=== PATIENT | male | born 1990 | race Caucasian/White ===

== ENCOUNTER 2020-05-05 08:52 | Outpatient (REF) | payer OTHER, SELFPAY ==
[2020-05-05 11:28] LABS: MANUAL DIFF FLAG NO
[2020-05-05 11:49] LABS: Basophils Absolute Auto 0.1 X10*3/uL (0.0-0.2); Basophils Percent Auto 0.7 % (0-2); Eosinophils Absolute Auto 0.1 X10*3/uL (0.0-0.4); Eosinophils Percent Auto 1.1 % (0-4); Hematocrit 45.9 % (42-52); Hemoglobin 15.5 g/dl (14.0-18.0); Imm Gran Abs Auto 0.04 X10*3/uL (0.00-0.03); Imm Gran Pct Auto 0.5 % (0.0-0.4); Lymphocytes Absolute Auto 2.1 X10*3/uL (1.2-4.9); Lymphocytes Percent Auto 23.3 % (20-40); Mean Corpuscular HGB Conc 33.8 g/dl (31.0-36.0); Mean Corpuscular Hemoglobin 30.7 pg (27.0-33.0); Mean Corpuscular Volume 90.9 fL (80-98); Mean Platelet Volume 10.3 fL (9.4-12.4); Monocytes Absolute Auto 0.6 X10*3/uL (0.1-1.2); Neutrophils Percent Auto 67.4 % (45-73); Platelet Count 262 X10*3/uL (160-400); Red Blood Count 5.05 X10*6/uL (4.60-5.80); Red Cell Distribution Width 11.7 % (11.0-16.0); White Blood Count 8.8 X10*3/uL (4.8-10.8)
[2020-05-05 11:50] LABS: Anion Gap 11 (12-20); Blood Urea Nitrogen 13 mg/dL (9-16); Calcium 9.3 mg/dL (8.4-10.2); Carbon Dioxide 30 mmol/L (22-29); Chloride 101 mmol/L (96-108); Estimated Glomerular Filt Rate > 60; Glucose Fasting 94 mg/dL (60-99); Potassium 4.5 mmol/l (3.3-5.1); Sodium 137 mmol/L (135-145)
[2020-05-05 12:08] LABS: TSH reflex Free T4 1.15 mIU/mL (0.32-4.0)
[2020-05-08 21:13] LABS: Vitamin B12 347 pg/mL (200-900)
== END 2020-05-05 08:53 | disposition home or self-care (01) ==
LOC: HO.HMGCX 08:52
PROVIDERS: PCP Internal Medicine; Visit Provider Nurse Practitioner Family
DX: R20.0 Anesthesia of skin (principal); R20.2 Paresthesia of skin
CPT/HCPCS: 36415; 80048; 82607; 84443; 85025

== ENCOUNTER 2020-05-19 08:22 | Outpatient (REF) | payer OTHER, SELFPAY ==
--- NOTE | 2020-05-19 08:34 | US_ITS ---
EXAMINATION: US ABDOMEN LIMITED CLINICAL INFORMATION: Umbilical hernia without obstruction or gangrene. COMPARISON: Portions of Ultrasound abdomen complete 08/10/2018. Portions of CT abdomen and pelvis 09/06/2017. TECHNIQUE: Real-time imaging of the abdomen targeting the area of clinical concern near the umbilicus. FINDINGS: There is no alteration in the echotexture at the base of the umbilicus. There appears to be a catheter in the abdominal wall fascia with some altered echotexture extending to the subcutaneous area. There is no definite peristalsis. No fluid or evidence of ectopic gas US/US abdomen limited IMPRESSION: There is a suggestion of a small amount of fat protruding into the umbilicus. No convincing evidence of bowel obstruction.
== END 2020-05-19 08:23 | disposition home or self-care (01) ==
LOC: HO.US 08:22
PROVIDERS: Visit Provider Internal Medicine
DX: K42.9 Umbilical hernia without obstruction or gangrene (principal)
CPT/HCPCS: 76705

== ENCOUNTER 2020-05-31 11:57 | Emergency (ER) | payer OTHER, SELFPAY ==
[2020-05-31 12:00] VITALS: BP 130/61; PULSE 87; RESP 18; TEMP 35.9; O2SAT 97; BMI 44.2
--- NOTE | 2020-05-31 14:33 | XR_ITS ---
EXAMINATION: XR KNEE, RIGHT CLINICAL INFORMATION: Right knee pain after a fall. History of paresthesias. COMPARISON: Right lower leg 09/06/2017 TECHNIQUE: 5 views of the right knee. FINDINGS: Bones and soft tissues are normal. No fracture or joint effusion. Alignment is anatomic. Joint spaces are well maintained. No abnormal soft tissue calcification. XR/XR knee RT 4V IMPRESSION: Normal right knee.
--- NOTE | 2020-05-31 14:44 | ED.LOWEXIN ---
HPI - Extremity Injury (Lower) General Chief Complaint: Extremity Injury, Lower Stated Complaint: rt knee and leg inj Time Seen by Provider: 05/31/20 14:20 Source: patient Mode of arrival: ambulatory Limitations: no limitations History of Present Illness HPI Narrative: 30yoM c PMHx of bilateral leg paresthesias of unknown cause presenting to the ED with complaints of having a episode of paresthesia while he was walking which made him fall landing on his right knee and having pain to right knee. Reports he has a neurology follow-up and EEG on June 12 in June 15. Denies any head injury or loss of consciousness or any other symptoms. Reports this paresthesia is a chronic paresthesias that he has been having and being worked up for. Related Data Previous Rx's Medication Instructions Recorded gabapentin 100 mg capsule 100 mg PO TID #30 cap 05/05/20 naproxen 500 mg PO BID PRN #10 tab 05/31/20 oxycodone-acetaminophen [Percocet] 1 tab PO Q6H PRN #10 tab 05/31/20 Allergies Allergy/AdvReac Type Severity Reaction Status Date / Time penicillin V Allergy Unknown rash Verified 05/10/20 14:24 Penicillins [PENICILLINS] Allergy Unknown UNKNOWN Verified 05/10/20 14:24 Review of Systems Review of Systems: Constitutional : No Fever, No Chills, Cardiovascular : No Chest Pain, No SOB Respiratory : No Dyspnea Gastrointestinal : No abdominal pain Musculoskeletal : + Joint pain, No Joint Swelling Skin : No skin laceration, No Foreign bodies, No rash, No surrounding erythema Neuro : No Weakness, No Numbness/tingling, No head injury of LOc. Psych : No SI/HI/thoughts of self injury Yes all other systems are reviewed and are negative [facility] Past Medical History Medical History (Updated 05/31/20 @ 15:33 by PANCHITO Johnson) Umbilical hernia Surgical History (Updated 05/31/20 @ 15:10 by PANCHITO Johnson) History of ear surgery History of nasal surgery History of tonsillectomy Family History Family History Father Back problem Mother Back problem Stroke Brother Chronic mental illness Depression Social History Social History Smoking Status: Never smoker Advance Directives: No Advance Directives Information Provided: No Physical Exam Vital Signs: Vital Signs: Vital Signs Temp Pulse Resp BP Pulse Ox 05/31/20 12:00 96.7 F L 87 18 130/61 97 Body Mass Index 44.2 vital signs have been reviewed as normal and appeared to be correct. Blood pressure normal. Heart rate normal. Respiration rate normal. Temperature normal. Oxygen saturation normal. Appearance: Alert. Oriented X3. No acute distress. Head: Normal external exam. Normocephalic. Atraumatic. No Cruz signs noted. No raccoon eyes noted Eyes: PERRLA. EOMI. Conjunctiva and sclera normal. Eyelids normal. ENT: Pharynx normal. Uvula midline. Moist mucous membranes. Neck: Normal inspection. Neck supple. FROM. No meningeal signs. CVS: Normal heart rate and rhythm. Heart sound normal. No murmurs noted. Pulses normal throughout. Back: Full range of motion noted. Skin: Skin warm and dry. Normal skin color. Normal skin turgor. No rashes/lesions/lacerations noted. Extremities: TTP of right knee medial and lateral aspect. Patient with full range of motion. No obvious deformities. No abrasions/lesion/induration/fluctuance or signs infection noted. All tendons and ligaments intact. No lower extremity edema. otherwise all other Extremities exhibit normal range of motion and nontender. Neuro: Oriented X 3. No motor deficit. No sensory deficit. Reflexes normal. Course Course Course Narrative: 14:33PM 30yoM c PMHx of bilateral leg paresthesias of unknown cause presenting to the ED with complaints of having a episode of paresthesia while he was walking which made him fall landing on his right knee and having pain to right knee. - Plan: Xray then re-evaluate. Reevaluation(s) Reevaluation #1: X-ray within normal limits no acute processes noted. Tendons and ligaments intact. Will DC home with symptomatic treatment and instructions to return if any new or worsening symptoms to follow-up with his EEG a neurologist as scheduled later this month. Patient understands agrees the plan. MDM - Extremity Injury (Lower) Medical Records Attestation: I reviewed the patient's medical records. Imaging Data right knee: Attestation: I personally reviewed and interpreted this imaging study as follows: Radiologist's impression: FINDINGS: Bones and soft tissues are normal. No fracture or joint effusion. Alignment is anatomic. Joint spaces are well maintained. No abnormal soft tissue calcification. XR/XR knee RT 4V IMPRESSION: Normal right knee. Discharge Plan Discharge Clinical Impression: Right knee sprain, Fall Patient Disposition: Home, Self-Care Instructions: Knee Sprain (ED) Prescriptions: New oxycodone-acetaminophen [Percocet] 5-325 mg tablet 1 tab PO Q6H PRN (Reason: pain) Qty: 10 RF: 0 naproxen 500 mg tablet 500 mg PO BID PRN (Reason: pain) Qty: 10 RF: 0 No Action gabapentin 100 mg capsule 100 mg PO TID Qty: 30 RF: 0 Referrals: Teressa Esqueda MD [Primary Care Provider] - 2 days Stand Alone Forms: Work/School Release Print Language: Somali
--- NOTE | 2020-05-31 14:44 | PC.NURSE ---
PT WAS SEEN BY FARZANEH ELMORE AND MADE AWARE OF THE ED PLAN
--- NOTE | 2020-05-31 16:01 | PC.NURSE ---
seen by provider. xrays negative, sent home with rest and pain meds. cleared for dc by provider
== END 2020-05-31 16:02 | disposition home or self-care (01) ==
PROVIDERS: Emergency Provider Emergency Medicine; PCP Internal Medicine
DX: S83.91XA Sprain of unspecified site of right knee, initial encounter (principal); M25.561 Pain in right knee; R20.2 Paresthesia of skin; R26.2 Difficulty in walking, not elsewhere classified; W01.0XXA Fall on same level from slipping, tripping and stumbling without subsequent striking against object, initial encounter; Y93.9 Activity, unspecified; Y92.9 Unspecified place or not applicable; Y99.9 Unspecified external cause status; Z79.899 Other long term (current) drug therapy
CPT/HCPCS: 73564; 99282; 99283

== ENCOUNTER → 2020-06-06 13:50 | Outpatient (BNVA) | payer OTHER, SELFPAY | PROVIDERS: PCP Internal Medicine; Visit Provider Surgery | DX: K42.9 Umbilical hernia without obstruction or gangrene (principal) | CPT/HCPCS: 99212 ==

== ENCOUNTER 2020-06-12 16:04 | Outpatient (REF) | payer OTHER, SELFPAY ==
[2020-06-12 17:11] LABS: Erythrocyte Sedimentation Rate 7 MM/HR (0-15)
[2020-06-12 17:16] LABS: T4 Thyroxine 6.8 ug/dL (4.5-12.0); Thyroid Stimulating Hormone 1.27 uIU/mL (0.32-4.0)
[2020-06-12 17:28] LABS: Folate 17.5 ng/mL (> or = 4.0); Vitamin B12 325 pg/mL (200-900)
[2020-06-13 08:52] LABS: Lyme Abs Screen <0.90 index
[2020-06-14 19:52] LABS: IgA 175 mg/dL (47-310); IgG 1319 mg/dL (600-1640); IgM 207 mg/dL (50-300)
== END 2020-06-12 16:05 | disposition home or self-care (01) ==
LOC: HO.LAB 16:04
PROVIDERS: PCP Internal Medicine; Visit Provider Psychiatry & Neurology Neurology
DX: G62.9 Polyneuropathy, unspecified (principal)
CPT/HCPCS: 36415; 82550; 82607; 82746; 82784; 84436; 84443; 85652; 86334; 86618

== ENCOUNTER 2020-06-15 09:16 | Outpatient (REF) | payer OTHER, SELFPAY ==
--- NOTE | 2020-06-15 09:20 | EMG_ITS ---
Bilateral tibial and peroneal motor studies were performed. Bilateral tibial H reflexes were obtained. Bilateral sural, superficial peroneal, and median and lateral plantar sensory studies were performed. IMPRESSION: 1. 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 2. No evidence of entrapment neuropathy or radiculopathy. MD RUI Al/CARLOS / [id number]
--- NOTE | 2020-06-15 11:00 | MR_ITS ---
EXAMINATION: MR LUMBAR SPINE WITHOUT AND WITH CONTRAST CLINICAL INFORMATION: Lumbar radiculopathy. Bilateral lower extremity pain, numbness, and weakness. COMPARISON: Lumbar spine radiographs 07/31/2016. TECHNIQUE: Multiplanar MR imaging of the lumbar spine was performed without and with contrast. A total of 10 mL Gadavist was utilized for this examination. FINDINGS: Alignment is normal. Vertebral heights are preserved. No acute bone marrow signal changes. There is disc desiccation at L5-S1 without substantial loss of intervertebral disc height. The tip of the conus medullaris is located at L1-L2. No mass effect on the conus. Visualized distal cord signal intensity is normal. At L1-L2, L2-L3, L3-L4, and L4-L5 the annular contours are normal. No mass effect on the traversing or foraminal nerve roots at these 4 levels. At L5-S1 there is a broad shallow right central extrusion with 0.3 cm caudal subligamentous extension of extruded disc material. Bilateral facet degenerative change. No canal stenosis. Partial effacement of the perineural fat without overt compression of the L5 foraminal nerve roots. Limited visualization of the retroperitoneal anatomy reveals no abnormal finding. Psoas and paraspinal muscle groups are symmetric. MR/MR lumbar spine wo/w con IMPRESSION: There is a broad shallow right central extrusion at L5-S1. No canal stenosis. No mass effect on the traversing or foraminal nerve roots.
== END 2020-06-15 09:17 | disposition home or self-care (01) ==
LOC: HO.NEURO 09:16
PROVIDERS: PCP Internal Medicine; Visit Provider Internal Medicine
DX: R20.0 Anesthesia of skin (principal); M54.16 Radiculopathy, lumbar region
CPT/HCPCS: 72158; 95860; 95861; 95886; 95913

== ENCOUNTER 2020-06-19 07:37 | Day surgery (SDC) | payer OTHER, SELFPAY ==
[2020-06-13 14:58] VITALS: BMI 44.2
--- NOTE | 2020-06-16 10:50 | P.CONAN_ITS ---
Documented by User: Claudia Hood 06/16/20 10:54 HPI - Anesthesia Eval Consult details Narrative: 30yo M Hernia Repair Umbilical [facility] Past Medical History Medical History (Updated 06/19/20 @ 08:42 by Jayne Acosta) GERD (gastroesophageal reflux disease) Neuropathy NASIM on CPAP Umbilical hernia Family History Family History Father Back problem Mother Back problem Stroke Brother Chronic mental illness Depression Surgical History Surgical History History of ear surgery History of nasal surgery History of tonsillectomy Social History Social History Alcohol intake: never Smoking Status: Never smoker Use of substances other than those prescribed or required for medical reasons: Yes Substance Use Type: Marijuana Substance Use Frequency: Occasionally Advance Directives: No Advance Directives Information Provided: No Advance Directives on File: No Meds Allergies Allergy/AdvReac Type Severity Reaction Status Date / Time penicillin V Allergy Unknown rash Verified 05/10/20 14:24 Penicillins [PENICILLINS] Allergy Unknown Rash Verified 06/13/20 14:56 Exam Exam Date and Time: June 16, 2020 1050 Height,Weight and Vital Signs: Height 5 ft 6 in Weight 124.284 kg Pertinent Lab Results Pertinent Lab Results: Laboratory Tests 05/05/20 05/05/20 09:20 09:20 WBC 8.8 Hgb 15.5 Hct 45.9 Plt Count 262 Sodium 137 Potassium 4.5 Chloride 101 Carbon Dioxide 30 H BUN 13 Creatinine 0.87 Narrative Narrative: EMG/Nerve Conduction study 06/15/20: 1. Bilateral mxkjiggf-fn-uzcams distal tibial neuropathy across tarsal tunnel. 2. No evidence of entrapment neuropathy or radiculopathy. Assessment and Plan Assessment Anesthesia Assessment: Chart Reviewed Documented by User: Jayne Acosta 06/19/20 08:48 [facility] Past Medical History Medical History (Updated 06/19/20 @ 08:42 by Jayne Acosta) GERD (gastroesophageal reflux disease) Neuropathy NASIM on CPAP Umbilical hernia Family History Family History Father Back problem Mother Back problem Stroke Brother Chronic mental illness Depression Family history of problems with anesthesia: No Surgical History Surgical History History of ear surgery History of nasal surgery History of tonsillectomy History of Problems with Anesthesia: No Social History Social History Alcohol intake: never Smoking Status: Never smoker Use of substances other than those prescribed or required for medical reasons: Yes Substance Use Type: Marijuana Substance Use Frequency: Occasionally Advance Directives: No Advance Directives Information Provided: No Advance Directives on File: No Meds Allergies Allergy/AdvReac Type Severity Reaction Status Date / Time penicillin V Allergy Unknown rash Verified 05/10/20 14:24 Penicillins [PENICILLINS] Allergy Unknown Rash Verified 06/13/20 14:56 Exam Height,Weight and Vital Signs: Vital Signs Temp Pulse Resp BP Pulse Ox 06/19/20 08:12 98.3 F 84 16 132/72 98 Airway Mallampati Class: II TM Dist: >3cm Neck ROM: Full Loose/Missing/Broken Teeth: No Heart: RRR Lungs: CTAB Assessment and Plan Assessment Anesthesia Assessment: Anesthesia Plan Discussed and Chart Reviewed Final Anesthetic Review NPO: Yes ASA Class: III Final Preanesthetic Review: No Changes in Pt Med Stat, Meds/Allgs Chart Reviewed, Consent Obtained/Reviewed and Anes Risks/Benef Reviewed Patient Risk: Intermediate Procedure Risk: Low Anesthetic Plan Anesthetic Plan: GA Disposition: Standard PACU
[2020-06-19] VITALS (12 sets, daily range): BP systolic 114–154; BP diastolic 70–94; PULSE 71–91; RESP 12–20; TEMP 36.4–36.8; O2SAT 96–98
[2020-06-19] MEDS: Lactated Ringers 1,000 ML 100 ML IVCONT (08:22)
[2020-06-19] MEDS: vancomycin HCL 1,000 MG in 0.9 % Sodium Chloride 250 ML 270 MG IV (08:22)
--- NOTE | 2020-06-19 08:47 | MHC.SHP ---
Pre-Procedural Eval Section A The patient is an INPATIENT: No Changes since office visit: Yes Patient answered all questions; No Cold of Flu in the past 2 weeks, No New Medical Problems and No Changes in Medication The History & Physical has been completed within 30 days and I have reviewed it.: Yes Section B Chief Complaint: Umbilical hernia Allergies: Allergies Allergy/AdvReac Type Severity Reaction Status Date / Time penicillin V Allergy Unknown rash Verified 05/10/20 14:24 Penicillins [PENICILLINS] Allergy Unknown Rash Verified 06/13/20 14:56 Plan Diagnosis/Plan: Unchanged Patient has been examined and remains a candidate for the planned procedure
--- NOTE | 2020-06-19 09:02 | P.BOP_ITS ---
Brief Operative Note Date of Service: 06/19/20 Pre-op diagnosis: Umbilical hernia Post-op diagnosis: same Procedure: Repair of umbilical hernia with mesh Implants: 6.[address] Lot: [id number], Ref [id number]; exp date: 2021-04-24 Surgeon: Chidi Trevino MD Anesthesia: GLMA [employer] Plant Supervisor: Xi Inman Estimated blood loss (mL): 2 Pathology: none sent Condition: stable Disposition: PACU
--- NOTE | 2020-06-19 09:02 | PM.OP ---
Brief Operative Note Date of Service: 06/19/20 Pre-op diagnosis: Umbilical hernia Post-op diagnosis: same Procedure: Repair of umbilical hernia with mesh Implants: 6.[address] Lot: [id number], Ref [id number]; exp date: 2021-04-24 Surgeon: Chidi Trevino MD Anesthesia: GLMA Janitor And Cleaner: iX Inman Estimated blood loss (mL): 2 Pathology: none sent Condition: stable Disposition: PACU
--- NOTE | 2020-06-19 09:33 | W.PM.OPN ---
Operative Note Operative Note Date of Service: 06/19/20 Narrative: Preoperative Diagnosis: Umbilical hernia Postoperative diagnosis: Same Procedure: Repair of umbilical hernia with mesh Surgeon: Chidi Trevino MD Spice Room Worker:SAMSON Garrett Anesthesia: General LMA Indications for procedure: Patient is a 22-year-old male patient with complaints of pain in the umbilicus. Workup with an ultrasound of the abdomen revealed an umbilical hernia with a defect measuring approximately 1 cm. Operative findings: Patient was found to have a 2 cm defect below the umbilicus which was repaired using a 6.[address] mesh Specimen: None Estimated blood loss: 2 mL Complications: None Procedure details: Patient was brought to the OR placed in supine position. After administering general anesthesia with LMA the patient's abdomen was prepped with ChloraPrep and draped in sterile fashion. A surgical time-out was called and the consent confirmed. Patient received preoperative antibiotics and Venodyne boots were in place. Local anesthesia consisting of 0.75% Sensorcaine with epinephrine was then infiltrated in periumbilical region. A curvilinear incision was made over the umbilicus carried out through subcutaneous tissue down to the hernia sac. The umbilical skin was elevated off the umbilical fascia. Margins of the hernia sac were then dye fine and the fascial edges dissected free. A preperitoneal space was then created in the hernia sac reduced. The 6.4 cm round Ventralex mesh was then obtained. This was placed into the preperitoneal space and secured to the fascia using [id number] 1. Tycron sutures. The mesh was incorporated into the closure. Fascia completely closed the defect over the mesh. After assuring that states it with saline sleep and suctioned dry. Local anesthesia was eating and applied to the deep subcutaneous tissue. Umbilical skin was then reapproximated to the fascia using a 3 0 Polysorb suture. Dermis was reapproximated using interrupted 3-0 Polysorb sutures. Skin was closed using a running subcuticular 4 0 Polysorb suture. Steri-Strips 2 x 2 gauze and Tegaderm were then applied. The patient tolerated the procedure well. Sponge, instrument, needle counts reported as correct. Patient was transferred to PACU in stable condition.
[2020-06-19] MEDS: oxyCODONE HCl Immed Release 5 MG TABLET PO (10:10)
[2020-06-19] MEDS: fentaNYL citrate/PF 100 MCG/2 ML VIAL 25 MCG IVPUSH ×4 (10:10→10:25)
[2020-06-19] MEDS: Acetaminophen 325 MG TABLET 975 MG PO (10:11)
== END 2020-06-19 11:54 | disposition home or self-care (01) ==
PROVIDERS: PCP Internal Medicine; Visit Provider Surgery
PROC: (CPT 49585; principal; 2020-06-19 09:50)
DX: K42.9 Umbilical hernia without obstruction or gangrene (principal); Z88.0 Allergy status to penicillin
CPT/HCPCS: 49585; C1781; J1100; J1170; J2250; J2405; J2765; J3010; J3370

== ENCOUNTER → 2020-06-27 09:43 | Outpatient (BNVA) | payer OTHER, SELFPAY | PROVIDERS: PCP Internal Medicine; Visit Provider Surgery | DX: K42.9 Umbilical hernia without obstruction or gangrene (principal); K59.00 Constipation, unspecified | CPT/HCPCS: 99212 ==

== ENCOUNTER → 2020-07-25 09:47 | Outpatient (BNVA) | payer OTHER, SELFPAY | PROVIDERS: PCP Internal Medicine; Visit Provider Surgery | DX: K42.9 Umbilical hernia without obstruction or gangrene (principal) | CPT/HCPCS: 99212 ==

== ENCOUNTER 2021-11-28 08:59 | Outpatient (REF) | payer OTHER, SELFPAY ==
[2021-11-28 09:17] LABS: MANUAL DIFF FLAG NO
[2021-11-28 09:41] LABS: Basophils Absolute Auto 0.1 X10*3/uL (0.0-0.2); Basophils Percent Auto 0.7 % (0-2); Eosinophils Absolute Auto 0.1 X10*3/uL (0.0-0.4); Eosinophils Percent Auto 1.3 % (0-4); Hematocrit 41.6 % (42.0-52.0); Hemoglobin 14.1 g/dl (14.0-18.0); Imm Gran Abs Auto 0.07 X10*3/uL (0.00-0.03); Imm Gran Pct Auto 0.7 % (0.0-0.4); Lymphocytes Absolute Auto 2.1 X10*3/uL (1.2-4.9); Lymphocytes Percent Auto 20.1 % (20-40); Mean Corpuscular HGB Conc 33.9 g/dl (31.0-36.0); Mean Corpuscular Hemoglobin 30.1 pg (27.0-33.0); Mean Corpuscular Volume 88.7 fL (80.0-98.0); Monocytes Absolute Auto 0.6 X10*3/uL (0.1-1.2); Monocytes Percent Auto 5.9 % (2-11); Neutrophils Absolute Auto 7.3 x10*3/uL (2.0-8.3); Neutrophils Percent Auto 71.3 % (45-73); Platelet Count 258 X10*3/uL (160-400); Red Blood Count 4.69 X10*6/uL (4.60-5.80); Red Cell Distribution Width 11.8 % (11.0-16.0); White Blood Count 10.2 X10*3/uL (4.8-10.8)
[2021-11-28 09:51] LABS: Estimated Average Glucose 85 mg/dL; Hemoglobin A1c % 4.6 %
[2021-11-28 10:03] LABS: Alanine Aminotransferase 47 U/L (0-40); Albumin Level 4.1 g/dL (3.5-5.0); Alkaline Phosphatase 80 U/L (39-117); Anion Gap 11 (12-20); Aspartate Amino Transferase 32 U/L (5-37); Bilirubin Total 0.8 mg/dL (0.0-1.0); Blood Urea Nitrogen 13 mg/dL (9-16); Calcium 9.2 mg/dL (8.4-10.2); Carbon Dioxide 25 mmol/L (22-29); Chloride 106 mmol/L (96-108); Cholesterol 152 mg/dL; Estimated Glomerular Filt Rate > 60; Glucose Fasting 90 mg/dL (60-99); HDL Cholesterol 32 mg/dL; LDL Cholesterol Calculated 105 mg/dl; Potassium 4.1 mmol/L (3.3-5.1); Sodium 138 mmol/L (135-145); Total Protein 7.2 g/dL (6.5-8.0); Triglycerides 79 mg/dL
[2021-11-28 10:26] LABS: TSH reflex Free T4 1.55 uIU/mL (0.32-4.0)
[2021-11-28 11:10] LABS: Folate 17.6 ng/mL (> or = 4.0); Vitamin B12 341 pg/mL (200-900)
[2021-12-04 15:16] LABS: Vitamin D 25-OH, D2 <4 ng/mL; Vitamin D 25-OH, D3 12 ng/mL; Vitamin D 25-OH, Total 12 ng/mL (30-100)
== END 2021-11-28 09:00 | disposition home or self-care (01) ==
LOC: HO.LAB 08:59
PROVIDERS: PCP Internal Medicine; Visit Provider Nurse Practitioner Acute Care
DX: Z00.00 Encounter for general adult medical examination without abnormal findings (principal)
CPT/HCPCS: 36415; 80053; 80061; 82306; 82607; 82746; 83036; 84443; 85025

== ENCOUNTER → 2022-01-31 10:13 | Outpatient (BNVA) | payer OTHER, SELFPAY | PROVIDERS: PCP Internal Medicine; Visit Provider Urology | DX: Z30.09 Encounter for other general counseling and advice on contraception (principal); F41.8 Other specified anxiety disorders | CPT/HCPCS: 99202 ==

== ENCOUNTER → 2022-03-14 13:48 | Outpatient (BNVA) | payer OTHER, SELFPAY | PROVIDERS: PCP Internal Medicine; Visit Provider Urology | DX: F41.8 Other specified anxiety disorders (principal); Z30.2 Encounter for sterilization; Z30.09 Encounter for other general counseling and advice on contraception | CPT/HCPCS: 55250 ==

== ENCOUNTER 2024-10-15 12:43 | Outpatient (AMB) | payer OTHER, SELFPAY ==
[2024-10-15 12:48] VITALS: BP 120/82; PULSE 113; TEMP 36.8; O2SAT 98; BMI 48.9
--- NOTE | 2024-10-15 12:48 | MHC.PC.OV ---
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 Sorter Required: No Accompanied by: Self / Same As Patient Allergies Penicillins [PENICILLINS] Allergy (Unknown, Verified 10/15/24 13:13) Rash Medication List - Last Reconciled 10/15/24 by FLAQUITO Beckwith No Known Home Meds Tobacco use date assessed: 10/15/24 Dental Screening Dental Screen Date: 10/15/24 Did you have a dental visit in the last 12 months?: Yes Did you have a dental problem in the last 6 months where you did not have access to dental care?: No Was dental information given to patient?: Patient has dentist HPI PE-see comments HPI Details The patient is 34 year old male present for annual evaluation The patient is a 34-year-old male who was presenting for a physical examination. Patient of Dr. Tucker Dentist: up to date Eye: not in a while, recommended Snellen: Right: Left: Corrected vision: STI screening:n/a Colonoscopy:n/a Pap Smer:n/a PHQ-9: Flu: reports did not take it this year but he usually COVID:x2 Tdap: up to date Diet:reports that he has been cutting back Exercise:Reports started working out consistently He reports that his hearing has gotten worse-status post ear surgery in the past NASIM: uses cpap-but not every night GERD: reports getting a lot acid reflux, reports that this wakes him up in the middle of the night will order omeprazole sob-in general-since he gain the weight, will order some labs PFSH Medical History Neuropathy NASIM on CPAP GERD (gastroesophageal reflux disease) Neuropathy Umbilical hernia Surgical History H/O vasectomy History of hernia surgery History of tonsillectomy History of ear surgery History of nasal surgery Family History Father Back problem Mother Back problem Stroke Brother Chronic mental illness Depression Daughter No problems noted. Son No problems noted. Son No problems noted. Other Mental health problem Substance abuse Social History Household Members: Children Housing: House Alcohol intake: current Alcohol type: wine Patient Tobacco Use Status: Never used Tobacco e-Cigarette/Vaping Use: Never Used Second Hand Smoke Exposure: No Substance Use Type: Marijuana service: No Current occupational status: unemployed Cognitive needs: No Hearing needs: No Vision needs: No Questionnaire PHQ-9 Over the last 2 weeks, how often have you been bothered by any of the following problems? 1. Little interest or pleasure in doing things: not at all 2. Feeling down, depressed, or hopeless: not at all 3. Trouble falling or staying asleep, or sleeping too much: not at all 4. Feeling tired or having little energy: not at all 5. Poor appetite or overeating: not at all 6. Feeling bad about yourself - or that you are a failure or have let yourself or your family down: not at all 7. Trouble concentrating on things, such as reading the newspaper or watching television: not at all 8. Moving or speaking so slowly that other people could have noticed. Or the opposite - being so fidgety or restless that you have been moving around a lot more than usual: not at all 9. Thoughts that you would be better off or of hurting yourself in some way: not at all Total score: 0 Depression Screening Interpretation: Negative Depression Screening Done: Yes 20616 - PHQ-9 Billing: Yes Source: Developed by Drs. Bossman Basilio, Shannon Torres, Silvestre Meza and colleagues, with an educational oneil from [employer]. Thrive Questionnaire Date Thrive assessed: 01/02/23 I am a: Patient What is your living situation today?: I have a steady place to live Within the past 12 months, did the food you bought not last and you didn't have the money to get more?: Never true Within the past 12 months, did you worry whether your food would run out before you got money to buy more?: Never true Do you have trouble paying for medicines?: No Do you have trouble getting transportation to medical appointments?: No Do you have trouble paying your heating and electricity bill?: No Do you have trouble taking care of your child, family member or friend?: No Do you have trouble with day-to-day activities such as bathing, preparing meals, shopping, managing finances, etc.?: No Are you currently unemployed and looking for a job?: No Are you interested in more education?: No Please select the resources that you would like help with: None Currently or been in a relationship where the following occur: No concerns reported THRIVE Score: 0 AUDIT C Alcohol Use Questionnaire (AUDIT-C) 1. How often do you have a drink containing alcohol?: 2-4 times a month 2. How many drinks containing alcohol do you have on a typical day when you are drinking?: 1 or 2 3. How often do you have six or more drinks on one occasion?: Never Total Score: 2 NIMISHA-7 AMB Questionnaire NIMISHA-7 Date NIMISHA - 7 assessed: 10/15/24 Feeling nervous, anxious, or on edge: 0 = Not at all Not being able to stop or control worryin = Not at all Worrying too much about different things: 0 = Not at all Trouble relaxin = Not at all Being so restless that it is hard to sit still: 0 = Not at all Becoming easily annoyed or irritable: 0 = Not at all Feeling afraid as if something awful might happen: 0 = Not at all Total NIMISHA-7 score (0-4 normal; 5-9 mild; 10-14 moderate; 15-21 severe): 0 Source: Developed by Drs. Bossman Basilio, Shannon Torres, Silvestre Meza and colleagues, with an educational oneil from [employer]. NIMISHA-7 Assessment Billing NIMISHA-7 Assessment Tool: NIMISHA-7 Assessment 14981 Review of Systems Const Denies headache(s) Eyes Denies loss of vision ENT Denies vertigo, Denies dizziness, Denies headache(s), Reports hearing loss and Denies sore throat Card Denies chest pain, Denies leg edema, Denies lightheadedness and Reports dyspnea (since gaining more weight) Resp Denies cough, Denies hemoptysis, Reports dyspnea (since gaining more weight) and Denies wheezing GI Denies abdominal pain, Denies melena, Denies constipation, Reports heartburn (wakes him up at night), Denies diarrhea and Denies vomiting Denies dysuria, Denies urinary frequency and Denies urinary urgency Musc Denies arthralgias, Denies joint swelling, Denies numbness and Denies tingling Neuro Denies Abnormal speech present, Denies behavioral changes, Denies vertigo, Denies dizziness, Denies headache(s), Denies loss of vision, Denies memory loss, Denies numbness and Denies tingling Psych Denies anxiety, Denies behavioral changes, Denies depression, Denies memory loss and Denies panic attacks Juanito/Lymph Denies easy bleeding and Denies easy bruising Aller/Immun Denies wheezing Physical exam (Primary Care) Vital Signs: Last Vital Signs Temp 98.2 F 10/15/24 12:48 Pulse 113 H 10/15/24 12:48 BP 120/82 10/15/24 12:48 Pulse Ox 98 10/15/24 12:48 Oxygen Delivery Method Room Air 10/15/24 12:48 BMI result Body Mass Index 48.9 Tobacco/Smoking Status: Tobacco use Status Tobacco use date assessed 10/15/24 10/15/24 12:58 Patient Tobacco Use Status Never used Tobacco 10/15/24 12:58 e-Cigarette/Vaping Use Never Used 10/15/24 12:58 PHQ-9: PHQ-9 Score PHQ-9: Total score 0 10/15/24 22:32 Depression Screening Interpretation: Negative Thrive Assessment: Date of Thrive Assessment Date Thrive assessed 01/02/23 10/15/24 12:58 Currently or been in a relationship where the following occur: No concerns reported Const General: healthy appearing, no acute distress, alert and awake Nutritional Appearance: well nourished Orientation/consciousness: oriented to person, oriented to place and oriented to time HENMT Ears: TM's normal bilaterally General nose exam: Normal nasal mucous membranes and turbinates present Eyes Conjunctivae: conjunctivae normal Sclerae: sclerae normal Pupils: Equal, round and reactive pupils present Neck Neck: Yes no lymphadenopathy and Yes no JVD Thyroid: Thyroid normal Carotids: no bruits Resp Effort & Inspection: normal respiratory effort and not tachypneic Auscultation: no crackles, no rales, no rhonchi and no wheezes Cardio Rate: regular rate Rhythm: regular rhythm Heart sounds: no murmurs and normal S1 and S2 GI Palpation (GI): Soft to palpation, nontender, no hepatomegaly and no splenomegaly Auscultation: normal bowel sounds Skin General skin exam: no rashes or lesions noted and dry skin Neuro General: oriented to person, oriented to place and oriented to time Cranial nerves: Yes Equal, round and reactive pupils present Speech: No Abnormal speech present Gait exam (Neuro): Normal gait present Motor exam (neuro): no tremor noted Extrem Right upper extremity: full ROM Left upper extremity: full ROM Right lower extremity: full ROM; no edema Left lower extremity: full ROM; no edema Psych Mental Status: mental status grossly normal Speech and movement: Normal speech and movement present Affect: normal affect Attitude: cooperative Thought process: Normal thought process present Coding Level of Care Code Est Pt Prev Care 18-39y(03833) Diagnoses Annual physical exam Z00.00 Morbid obesity with BMI of 45.0-49.9, adult E66.01; Z68.42 Vitamin D deficiency E55.9 Borderline hypertension R03.0 NIMISHA (generalized anxiety disorder) F41.1 NASIM on CPAP G47.33; Z99.89 Gastroesophageal reflux disease, unspecified whether esophagitis present K21.9 Esophagitis presence: esophagitis presence not specified History of ear surgery Z98.890 Additional Codes NIMISHA-7 Assessment Billing - NIMISHA-7 Assessment Tool: NIMISHA-7 Assessment 34000 ([id number]) PHQ-9 - 68030 - PHQ-9 Billing: Yes ([id number]) Time Spent (min) 39 Assessment & Plan Assessment & Plan (1) Annual physical exam: Code(s): Z00.00 - Encounter for general adult medical examination without abnormal findings Category: Medical Plan: Preventative guidelines reviewed with the patient. No recent labs to review (2) Morbid obesity with BMI of 45.0-49.9, adult: Code(s): E66.01 - Morbid (severe) obesity due to excess calories; Z68.42 - Body mass index [BMI] 45.0-49.9, adult Category: Medical Plan: Encouraged to exercise for at least 30 minutes a day/5 days a week Healthy eating discussed. Encouraged to eat fruits/vegetables, protein-fish/baked chicken, and to avoid salty/fried foods, sweets, caffeine and carbohydrates. Encouraged to increase water intake 6-8 glasses a day (3) Vitamin D deficiency: Code(s): E55.9 - Vitamin D deficiency, unspecified Category: Medical Plan: No recent labs to compare. Labs ordered, we will advise when resulted (4) Borderline hypertension: Code(s): R03.0 - Elevated blood-pressure reading, without diagnosis of hypertension Category: Medical Plan: Blood pressure within goal in office heart rate is tachycardic-seems to be exertion related due sob from weight gain (5) NIMISHA (generalized anxiety disorder): Code(s): F41.1 - Generalized anxiety disorder Category: Medical Plan: recommended cbt Denies si/hi (6) NASIM on CPAP: Code(s): G47.33 - Obstructive sleep apnea (adult) (pediatric); Z99.89 - Dependence on other enabling machines and devices Category: Medical Plan: Reports not using every night. encouraged compliance with CPAP to prevent strain on other organs due decreased oxygenation (7) GERD (gastroesophageal reflux disease): Comment: Occ. Tums pen Code(s): K21.9 - Gastro-esophageal reflux disease without esophagitis Category: Medical Qualifiers: Esophagitis presence: esophagitis presence not specified Qualified Code(s): K21.9 - Gastro-esophageal reflux disease without esophagitis Plan: Reinforced low-cholesterol diet Omeprazole 40 mg p.o. ordered (8) History of ear surgery: Comment: x4 as a baby Code(s): Z98.890 - Other specified postprocedural states Category: Surgical Plan: Reports that he is having increased hearing lost. s/p ear sugery in the past x4 as a baby. Will refer the patient to ENT Orders: Orders B Type Natriuretic Peptide 10/15/24 E66.01 - Morbid (severe) obesity due to excess calories, Z68.42 - Body mass index [BMI] 45.0-49.9, adult, E55.9 - Vitamin D deficiency, unspecified, F41.1 - Generalized anxiety disorder, G47.33 - Obstructive sleep apnea (adult) (pediatric), Z99.89 - Dependence on other enabling machines and devices, K21.9 - Gastro-esophageal reflux disease without esophagitis Lipid Panel 10/15/24 E66.01 - Morbid (severe) obesity due to excess calories, Z68.42 - Body mass index [BMI] 45.0-49.9, adult, E55.9 - Vitamin D deficiency, unspecified, F41.1 - Generalized anxiety disorder, G47.33 - Obstructive sleep apnea (adult) (pediatric), Z99.89 - Dependence on other enabling machines and devices, K21.9 - Gastro-esophageal reflux disease without esophagitis UA CC w/rflx Micro + Cult 10/15/24 E66.01 - Morbid (severe) obesity due to excess calories, Z68.42 - Body mass index [BMI] 45.0-49.9, adult, E55.9 - Vitamin D deficiency, unspecified, F41.1 - Generalized anxiety disorder, G47.33 - Obstructive sleep apnea (adult) (pediatric), Z99.89 - Dependence on other enabling machines and devices, K21.9 - Gastro-esophageal reflux disease without esophagitis Glucose Fasting 10/15/24 E66.01 - Morbid (severe) obesity due to excess calories, Z68.42 - Body mass index [BMI] 45.0-49.9, adult, E55.9 - Vitamin D deficiency, unspecified, F41.1 - Generalized anxiety disorder, G47.33 - Obstructive sleep apnea (adult) (pediatric), Z99.89 - Dependence on other enabling machines and devices, K21.9 - Gastro-esophageal reflux disease without esophagitis Complete Blood Count Auto Diff 10/15/24 E66.01 - Morbid (severe) obesity due to excess calories, Z68.42 - Body mass index [BMI] 45.0-49.9, adult, E55.9 - Vitamin D deficiency, unspecified, F41.1 - Generalized anxiety disorder, G47.33 - Obstructive sleep apnea (adult) (pediatric), Z99.89 - Dependence on other enabling machines and devices, K21.9 - Gastro-esophageal reflux disease without esophagitis Comprehensive [place]. Panel Fast 10/15/24 E66.01 - Morbid (severe) obesity due to excess calories, Z68.42 - Body mass index [BMI] 45.0-49.9, adult, E55.9 - Vitamin D deficiency, unspecified, F41.1 - Generalized anxiety disorder, G47.33 - Obstructive sleep apnea (adult) (pediatric), Z99.89 - Dependence on other enabling machines and devices, K21.9 - Gastro-esophageal reflux disease without esophagitis Vitamin D 25-OH Total 10/15/24 E66.01 - Morbid (severe) obesity due to excess calories, Z68.42 - Body mass index [BMI] 45.0-49.9, adult, E55.9 - Vitamin D deficiency, unspecified, F41.1 - Generalized anxiety disorder, G47.33 - Obstructive sleep apnea (adult) (pediatric), Z99.89 - Dependence on other enabling machines and devices, K21.9 - Gastro-esophageal reflux disease without esophagitis TSH reflex Free T4 10/15/24 E66.01 - Morbid (severe) obesity due to excess calories, Z68.42 - Body mass index [BMI] 45.0-49.9, adult, E55.9 - Vitamin D deficiency, unspecified, F41.1 - Generalized anxiety disorder, G47.33 - Obstructive sleep apnea (adult) (pediatric), Z99.89 - Dependence on other enabling machines and devices, K21.9 - Gastro-esophageal reflux disease without esophagitis Hemoglobin A1c 10/15/24 E66.01 - Morbid (severe) obesity due to excess calories, Z68.42 - Body mass index [BMI] 45.0-49.9, adult, E55.9 - Vitamin D deficiency, unspecified, F41.1 - Generalized anxiety disorder, G47.33 - Obstructive sleep apnea (adult) (pediatric), Z99.89 - Dependence on other enabling machines and devices, K21.9 - Gastro-esophageal reflux disease without esophagitis Medications: New omeprazole 40 mg PO DAILY 60 caps 3RF 60 days K21.9 - Gastro-esophageal reflux disease without esophagitis albuterol sulfate 90 mcg/actuation 2 puffs inhalation Q4-6H PRN 8.5 grams 1RF shortness of breath or wheezing 90 days
== END 2024-10-15 13:48 | disposition home or self-care (01) ==
LOC: HO.HMCH 12:44
PROVIDERS: PCP Internal Medicine
DX: Z00.00 Encounter for general adult medical examination without abnormal findings (principal); E66.01 Morbid (severe) obesity due to excess calories; Z68.42 Body mass index [BMI] 45.0-49.9, adult; E55.9 Vitamin D deficiency, unspecified; R03.0 Elevated blood-pressure reading, without diagnosis of hypertension; F41.1 Generalized anxiety disorder; G47.33 Obstructive sleep apnea (adult) (pediatric); Z99.89 Dependence on other enabling machines and devices; K21.9 Gastro-esophageal reflux disease without esophagitis; Z98.890 Other specified postprocedural states

== ENCOUNTER → 2024-10-15 12:43 | Outpatient (BNVA) | payer OTHER, SELFPAY | PROVIDERS: PCP Internal Medicine | DX: Z00.00 Encounter for general adult medical examination without abnormal findings (principal); E66.01 Morbid (severe) obesity due to excess calories; Z68.42 Body mass index [BMI] 45.0-49.9, adult; E55.9 Vitamin D deficiency, unspecified; R03.0 Elevated blood-pressure reading, without diagnosis of hypertension; F41.1 Generalized anxiety disorder; K21.9 Gastro-esophageal reflux disease without esophagitis; G47.33 Obstructive sleep apnea (adult) (pediatric); Z99.89 Dependence on other enabling machines and devices; Z98.890 Other specified postprocedural states | CPT/HCPCS: 96127; 99395 ==

== ENCOUNTER 2024-10-25 08:36 | Outpatient (REF) | payer OTHER, SELFPAY ==
[2024-10-25 08:53] LABS: MANUAL DIFF FLAG NO
[2024-10-25 09:50] LABS: Appearance Urine Clear; Color Urine Yellow; Glucose Urine UA Negative (Negative); Leukocyte Esterase Urine Negative (Negative); Nitrite Urine Negative (Negative); Specific Gravity - Urine 1.025 (1.005-1.025); Urine Blood Negative (Negative); Urine Ketones Trace mg/dL (Negative); Urine Protein Negative (Neg-Trace)
[2024-10-25 09:56] LABS: Basophils Absolute Auto 0.1 X10*3/uL (0.0-0.2); Basophils Percent Auto 0.8 % (0-2); Eosinophils Absolute Auto 0.1 X10*3/uL (0.0-0.4); Eosinophils Percent Auto 1.4 % (0-4); Hematocrit 44.9 % (42.0-52.0); Hemoglobin 15.4 g/dl (14.0-18.0); Imm Gran Abs Auto 0.06 X10*3/uL (0.00-0.03); Imm Gran Pct Auto 0.8 % (0.0-0.4); Lymphocytes Absolute Auto 1.6 X10*3/uL (1.2-4.9); Lymphocytes Percent Auto 20.2 % (20-40); Mean Corpuscular HGB Conc 34.3 g/dl (31.0-36.0); Mean Corpuscular Hemoglobin 30.4 pg (27.0-33.0); Mean Corpuscular Volume 88.7 fL (80.0-98.0); Mean Platelet Volume 10.1 fL (9.4-12.4); Monocytes Absolute Auto 0.8 X10*3/uL (0.1-1.2); Monocytes Percent Auto 9.7 % (2-11); Neutrophils Absolute Auto 5.4 x10*3/uL (2.0-8.3); Neutrophils Percent Auto 67.1 % (45-73); Platelet Count 238 X10*3/uL (160-400); Red Blood Count 5.06 X10*6/uL (4.60-5.80); Red Cell Distribution Width 11.9 % (11.0-16.0)
[2024-10-25 10:32] LABS: Estimated Average Glucose 94 mg/dL; Hemoglobin A1C 121.7444 umol/L; Hemoglobin A1c % 4.9 % (<6.0)
[2024-10-25 10:34] LABS: B Type Natriuretic Peptide < 10 pg/mL (<100)
[2024-10-25 11:04] LABS: Alanine Aminotransferase 47 U/L (0-40); Albumin Level 4.1 g/dL (3.5-5.0); Alkaline Phosphatase 74 U/L (39-117); Anion Gap 12 (12-20); Aspartate Amino Transferase 31 U/L (5-37); Bilirubin Total 0.6 mg/dL (0.0-1.0); Blood Urea Nitrogen 18 mg/dL (9-16); Calcium 8.7 mg/dL (8.4-10.2); Carbon Dioxide 26 mmol/L (22-29); Chloride 107 mmol/L (96-108); Cholesterol 155 mg/dL (<200); Estimated Glomerular Filt Rate > 60; Glucose Fasting 107 mg/dL (60-99); HDL Cholesterol 37 mg/dL (>40); LDL Cholesterol Calculated 102 mg/dL (<100); Potassium 3.9 mmol/L (3.3-5.1); Sodium 141 mmol/L (135-145); TSH reflex Free T4 1.39 uIU/mL (0.32-4.0); Total Protein 7.3 g/dL (6.5-8.0); Triglycerides 84 mg/dL (<150); Vitamin D 25-OH Total 12.6 ng/mL (>30)
== END 2024-10-25 08:37 | disposition home or self-care (01) ==
LOC: HO.LAB 08:36
DX: E66.01 Morbid (severe) obesity due to excess calories (principal); E55.9 Vitamin D deficiency, unspecified; F41.1 Generalized anxiety disorder; G47.33 Obstructive sleep apnea (adult) (pediatric); K21.9 Gastro-esophageal reflux disease without esophagitis; Z68.42 Body mass index [BMI] 45.0-49.9, adult; Z99.89 Dependence on other enabling machines and devices
CPT/HCPCS: 36415; 80053; 80061; 81003; 82306; 83036; 83880; 84443; 85025

== ENCOUNTER 2025-05-06 12:44 | Emergency (ER) | payer OTHER, SELFPAY ==
--- NOTE | ~2025-05-06 | XR_ITS ---
EXAMINATION: XR ELBOW 3 VIEWS LEFT HISTORY: pain COMPARISON: There are no prior studies available for comparison. FINDINGS: Three views of the left elbow are submitted. Osseous mineralization is normal. There is no fracture or dislocation. The joint spaces are preserved. The soft tissues are unremarkable. There is no joint effusion. XR/XR elbow LT min 3V IMPRESSION: Unremarkable examination of the left elbow. Electronically signed by: Bossman Emerson MD 05/06/2025 02:07 PM EDT
[2025-05-06 13:11] VITALS: BP 180/94; PULSE 86; RESP 16; TEMP 37; O2SAT 98; BMI 41.1
--- NOTE | 2025-05-06 13:11 | ED.GENADULT ---
HPI - General Adult General Chief complaint: Extremity Injury, Upper Stated complaint: Arm injury @ work Time Seen by Provider: 05/06/25 15:20 Source: patient and RN notes reviewed Mode of arrival: ambulatory Limitations: no limitations History of Present Illness ED Provider: Verna Carolina PA-C HPI narrative: This is a 25-obdj-npt-male who presents to [facility] ER with complaints of left arm pain which occurred while he was at work today. Pt states that while he was at work he was lifting heavy boxes and while he was holding a box up, he felt a stretching sensation in his arm, without any popping sensation, and now has had pain and has been unable to fully extend his left arm. Denies hx of similar symptoms. No numbness/tingling. No other complaints or concerns at this time. MD complaint: Left arm pain Onset (ago): hour(s) Location: upper extremity Quality: aching Pain Consistency: constant Relieving factors: none Exacerbating factors: none Associated symptoms: denies other symptoms Treatments prior to arrival: none Related Data Previous Rx's ?Medication ?Instructions ?Recorded omeprazole 40 mg capsule,delayed 40 mg PO DAILY 60 days #60 caps 10/15/24 release albuterol sulfate 90 mcg/actuation 2 puff inhalation Q4-6H PRN 12/19/24 aerosol inhaler shortness of breath or wheezing 90 days #8.5 grams acetaminophen 500 mg tablet 1,000 mg (2 x 500 mg) PO QID PRN 05/06/25 (Tylenol Extra Strength) pain #30 tabs ibuprofen 600 mg tablet 600 mg PO Q6H PRN pain #30 tabs 05/06/25 Allergies Allergy/AdvReac Type Severity Reaction Status Date / Time Penicillins (PENICILLINS) Allergy Unknown Rash Verified 05/06/25 13:14 Review of Systems Review of Systems: Constitutional : No Fever, No Chills ENT/Mouth : No sore throat, No Rhinorrhea Eyes: No Eye Pain, No Swelling, No Redness Cardiovascular : No Chest Pain, No SOB Respiratory : No Cough, No Sputum Gastrointestinal : No Nausea, No Vomiting, No Diarrhea, No abdominal Pain Genitourinary : No Dysuria, No Hematuria Musculoskeletal : No joint pain, No Myalgias, No Joint Swelling Skin : No Skin Lesions Neuro : No Weakness, No Numbness, No Headache All other systems reviewed and are negative Yes all other systems are reviewed and are negative Constitutional: Constitutional: Reports as per HPI [facility] Past Medical History Medical History Neuropathy NASIM on CPAP GERD (gastroesophageal reflux disease) Neuropathy Umbilical hernia Surgical History H/O vasectomy History of hernia surgery History of tonsillectomy History of ear surgery History of nasal surgery Family History Family History Father Back problem Mother Back problem Stroke Brother Chronic mental illness Depression Daughter No problems noted. Son No problems noted. Son No problems noted. Other Mental health problem Substance abuse Social History Social History Household Members: Children Housing: House Alcohol intake: current Alcohol type: wine Patient Tobacco Use Status: Never used Tobacco e-Cigarette/Vaping Use: Never Used Second Hand Smoke Exposure: No Substance Use Type: Marijuana Advance Directives: No Advance Directives Information Provided: No service: No Current occupational status: unemployed Cognitive needs: No Hearing needs: No Vision needs: No Physical Exam ED Exam Exam: General: Awake, alert, and oriented X3. No acute distress. HEENT: Normal inspection CVS: Normal heart rate and rhythm. Pulses normal. Respiratory: No respiratory distress Skin: Warm, dry, no rashes noted to exposed skin. Normal skin color. Normal skin turgor. Extremities: Left arm with no overlying skin changes, warmth. Pt with TTP overlying the distal biceps insertion site, forearm. Able to flex, however unable to fully extend left arm. Sensation intact. No TTP overlying the olecranon, wrist, left humerus/shoulder. Neuro: Oriented X 3. No motor deficit. No sensory deficit. Vital Signs: BMI result Body Mass Index 41.1 Medical Decision Making Medical Decision Making MDM Narrative: 35 y/o M who presents to the ER with concerns of left arm pain s/p heavy lifting at work today. He reports inability to extend left arm fully due to pain and weakness. DDX including fracture, muscle strain, tendon injury, muscle tear. Left arm compartments are soft, compartment syndrome unlikely. Xray of the elbow obtained to r/o any bony abnormalities which was negative. Discussed case with joan Sanchez, who recommends f/u with ortho in 1 week. Discussed overall workup with patient, who understands and agrees with plan. Stable for d.c. Also advised to f/u with PCP in regards to his BP. He has no CP/headache/dizziness/vision changes. Differential Diagnosis Differential Diagnoses: The differential diagnosis associated with the presentation includes see above Radiology Impression Discussion of test interpretation with radiology: I have reviewed the radiologist's reading. Radiologist Impression: FINDINGS: Three views of the left elbow are submitted. Osseous mineralization is normal. There is no fracture or dislocation. The joint spaces are preserved. The soft tissues are unremarkable. There is no joint effusion. XR/XR elbow LT min 3V IMPRESSION: Unremarkable examination of the left elbow. Electronically signed by: Bossman Emerson MD 05/06/2025 02:07 PM EDT RP Dictated By: Bossman Emerson MD Discharge Plan Discharge Clinical Impression: Arm pain, left Patient Disposition: Home, Self-Care Instructions: Arm Pain (ED) Additional Instructions: You were seen in the emergency department due to left arm pain Your x-ray does not show any bony abnormalities. You likely have irritated the muscles and tendons in your arm. Please follow-up with the deployment specialist. Call today to make an appointment. Alternate between ibuprofen and or Tylenol as needed for pain and symptoms. Rest, ice, and gentle range of motion can be beneficial. No heavy lifting until your arm symptoms have fully healed. If any new or worsening symptoms occur including but not limited to severe chest pain or shortness of breath, please seek emergent care. Prescriptions: New ibuprofen 600 mg tablet 600 mg PO Q6H PRN (Reason: pain) Qty: 30 0RF acetaminophen [Tylenol Extra Strength] 500 mg tablet 1,000 mg PO QID PRN (Reason: pain) Qty: 30 0RF No Action albuterol sulfate 90 mcg/actuation HFA aerosol inhaler 2 puff inhalation Q4-6H PRN (Reason: shortness of breath or wheezing) 90 Days Qty: 8.5 1RF lidocaine (PF) 10 mg/mL (1 %) solution 2 ml Infiltration ONCE Qty: 2 0RF omeprazole 40 mg capsule,delayed release(DR/EC) 40 mg PO DAILY 60 Days Qty: 60 3RF Referrals: [facility] [place] Orthopedic Surgeons [Provider Group] Interventions: ED Discharge Assessment Last Done: 05/06/25 16:29 Discharge Date/Time: 05/06/25 16:30 Print Language: Serbian
[2025-05-06 16:29] VITALS: BP 180/94; PULSE 86; RESP 16; TEMP 37; O2SAT 98
== END 2025-05-06 16:30 | disposition home or self-care (01) ==
PROVIDERS: Emergency Provider Emergency Medicine Emergency Medical Services; PCP Internal Medicine
DX: S49.92XA Unspecified injury of left shoulder and upper arm, initial encounter (principal); M79.602 Pain in left arm; X50.0XXA Overexertion from strenuous movement or load, initial encounter; Y93.9 Activity, unspecified; Y92.9 Unspecified place or not applicable; Y99.0 Civilian activity done for income or pay
CPT/HCPCS: 73080; 99282; 99283

== ENCOUNTER → 2025-05-06 13:51 | Outpatient (BNV) | payer OTHER, SELFPAY | PROVIDERS: PCP Internal Medicine; Visit Provider Radiology Diagnostic Radiology | DX: M25.522 Pain in left elbow (principal) | CPT/HCPCS: 73080 ==

== ENCOUNTER 2025-05-19 10:23 | Outpatient (AMB) | payer OTHER, SELFPAY ==
--- NOTE | 2025-05-19 10:42 | A.OFFVIS_ITS ---
Vital Signs 05/19/25 10:51 Height 5 ft 6 in Weight 286 lb BMI 46.2 Handedness Right Intake Visit Reasons: ED - left elbow pain, DOI 05/06/25 Intake Note: Tyrese is a 35 year old male who presents today for a evaluation of his right elbow pain, DOI 05/06/25. Patient reports he was at work when he lifting heavy boxes. While he was holding a box up he felt a stretching sensation in his arm. Patient states that at the time of the injury he wasn't unable to fully extend his left arm. He was seen at the ED on the same day of the injury and they recommended to rest, ice, gentle range of motions and no heavy lifting. Patient mentions that he is working light duty after his injury. He states that he is feeling discomfort all the time, also feels better from the date of injury. 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 Allergies Penicillins (PENICILLINS) Allergy (Unknown, Verified 05/19/25 10:48) Rash HPI HPI ED - left elbow pain, DOI 05/06/25: Details: Mr. Giovani Kaminski is a 35-year-old right-hand dominant male who presents to the office today for evaluation of a left elbow injury that he sustained on 05/06/2025. He states that he was lifting a heavy box and felt a ?rubber band snapping sensation. Initially, he did not present to the emergency room but the following day he had difficulty with fully extending the elbow. X-rays were obtained in the ED and negative for any acute fracture or dislocation. He is able to fully extend the elbow now but continues to have pain. [facility]LY [facility] Medical History Neuropathy NASIM on CPAP GERD (gastroesophageal reflux disease) Neuropathy Umbilical hernia Surgical History H/O vasectomy History of hernia surgery History of tonsillectomy History of ear surgery History of nasal surgery Family History Father Back problem Mother Back problem Stroke Brother Chronic mental illness Depression Daughter No problems noted. Son No problems noted. Son No problems noted. 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 Full extension and flexion. Distal biceps tendon feels palpable but due to weakness with resisted motion questionable for partial tearing. NVI. Psych Appearance: grossly normal Mental Status: mental status grossly normal Attitude: cooperative Assessment & Plan Assessment & Plan (1) Tear of distal tendon of biceps: Code(s): S46.219A - Strain of muscle, fascia and tendon of other parts of biceps, unspecified arm, initial encounter Category: Medical Plan Mr. Giovani Kaminski is a 35-year-old right-hand dominant male who presents to the office today for evaluation of a left elbow injury that he sustained on 05/06/2025. He states that he was lifting a heavy box and felt a ?rubber band snapping sensation. Initially, he did not present to the emergency room but the following day he had difficulty with fully extending the elbow. X-rays were obtained in the ED and negative for any acute fracture or dislocation. He is able to fully extend the elbow now but continues to have pain. Dr. Bah was available to see the patient with me in the office today in a collaborative treatment plan was created. On physical examination the patient does have notable weakness with resisted left elbow pronation supination compared to the contralateral side. This leads for high suspicion of a partial distal biceps tendon tear. I have ordered a stat MRI to evaluate this in more detail. He will contact me once the MRI has been obtained and we will discuss the next steps, sooner if needed. X-rays that were obtained on 05/06/2025 in the emergency department of the left elbow were negative for any acute fracture or dislocation. Orders: Orders MR elbow LT wo con Today S46.219A - Strain of muscle, fascia and tendon of other parts of biceps, unspecified arm, initial encounter Coding Level of Care Code New Pt Level 4 (59453) Diagnoses Tear of distal tendon of biceps S46.219A
[2025-05-19 10:51] VITALS: BMI 46.2
--- OUTSIDE RECORDS SUMMARY | 2025-05-19 12:28 | XMS_ITS | Encounter Summary ---
Author Organization [facility] Address [address] [place] [id number] Phone Care Team Providers Care Appliquer Name Role Phone Nick Lobo MD Primary Care Provider Myron villeda Encounter Details Date Type Department Care Team (Late st Contact Info) Description 03/13/2017 Conversion Encounter [facility] - [address] [address] Social History Tobacco Use Types Packs/Day Years Used Date Smoking Tobacco: Never Assessed Sex and Gender Information Value Date Recorded Sex Assigned at Not on file Legal Sex Male 4:28 PM EDT Gender Identity Not on file Sexual Orientation Not on file documented as of this encounter Plan of Treatment Not on file documented as of this encounter Visit Diagnoses Not on filedocumented in this encounter Care Teams Appliquer Relationship Specialty Start Date End Date Nick Lobo MD PCP - General 03/07/17 01/09/23 documented as of this encounter
--- OUTSIDE RECORDS SUMMARY | 2025-05-19 12:28 | XMS_ITS | Clinical Summary ---
Author Organization [facility] Address [address] [place] [phone] Phone Care Team Providers Care Bartender Name Role Phone Unavailable Primary Care Provider Unavailabl e Immunizations Immunization Administration Dates Next Due DTP 11/25/1996, 4,1992,06/26,1992 H1N1 10/12/2009 Hep B, ped/adol 1992,1992,1992 Hib (HbOC) 06/26/1993, 3,1992,04/26 IPV 10/25/1993,06/26/1993,1992 Influenza, injectable, trivalent 002,06/29/2001,05/31/1999,06/15 MMR 11/25/1996,06/26/1993 Meningococcal Conj (Menactra) MCV4P 10/12/2009 OPV 11/25/1996 Td (adult) (MBL), 2 Lf tetan us toxoid, PF, adsorbed 05/19/2003 Tdap 10/12/2009 Family History Relation Name Status Comments Brother Alive Brother: Asthma Father Alive Father: Alive a nd well Maternal Grandfather Materna l grandfather: Diabetes mellitus Mother Alive Mother: Asthma Paternal Grandmother Paterna l grandmother: Diabetes mellitus Sister Alive Sister: Alive a nd well Social History Tobacco Use Types Packs/Day Years Used Date Smoking Tobacco: Never Assessed Sex and Gender Information Value Date Recorded Sex Assigned at Not on file Legal Sex Male 4:28 PM EDT Gender Identity Not on file Sexual Orientation Not on file Last Filed Vital Signs Vital Sign Reading Time Taken Comments Blood Pressure 120/70 10/12/2009 12:00 AM EDT Pulse - - Temperature - - Respiratory Rate - - Oxygen Saturation - - Inhaled Oxygen Concentration - - Weight 109 kg (240 lb) 10/12/2009 12:00 AM EDT Height 168.9 cm (5' 6.5 ) 10/12/2009 12:00 AM ED T Body Mass Index 38.16 10/12/2009 12:00 AM EDT Plan of Treatment Health Maintenance Due Date Last Done Comments Varicella Vaccines (1 of 2 - 13+ 2-dose series) 02/15/2005 HPV Vaccines (1 - 3-dose SCDM series) 02/15/2019 DTaP,Tdap,and Td Vaccines (7 - Td or Tdap) 10/13/2019 10/12/2009, 05/19/2003, 11/25/1996, Additional history exists Influenza Vaccines (#1) 2025 05/20/20, 06/29/2001, 05/31/1999, Additional history exists COVID-19 Vaccine (2024- season) 2025 Hepatitis B Vaccines Completed 1992, 1992, 1992 HIB Vaccines Completed 06/26/1993, 08/29, 1992, Additional history exists IPV Vaccines Completed 11/25/1996, 09/27, 06/26/1993, Additional history exists MMR Vaccines Completed 11/25/1996, 06/26/1993 Meningococcal Vaccine Completed 10/12/2009 Hepatitis A Vaccines Aged Out No long er eligible based on patient's age to complete this topic Men B Vaccine Aged Out No longer elig ible based on patient's age to complete this topic Pneumococcal Vaccine Aged Out No long er eligible based on patient's age to complete this topic
--- OUTSIDE RECORDS SUMMARY | 2025-05-19 12:28 | XMS_ITS | Clinical Summary ---
Author Organization [facility] Address [address] [place] [address] Phone Care Team Providers Care Life Teacher Name Role Phone Unavailable Primary Care Provider Unavailabl e Encounters Date Type Department Care Team Description 05/12/2025 3:11 PM EDT - 05/12/2025 11:59 PM EDT Hospital Encounter [facility] CT Scan [address] [place] [address] Venous insufficiency (chronic) (peripheral) Discharge Disposition: Home or Self Care from Last 3 Months Social History Tobacco Use Types Packs/Day Years Used Date Smoking Tobacco: Never Assessed Sex and Gender Information Value Date Recorded Sex Assigned at Not on file Legal Sex Male 5:05 AM EST Gender Identity Not on file Sexual Orientation Not on file Plan of Treatment Health Maintenance Due Date Last Done Comments HPV Vaccines (1 - 3-dose SCDM series) 02/15/2019 Depression Screening 07/28/2024 COVID-19 Vaccine ( season) 2025 02/04/2022, 04/11/2021, 03/05/2021 Influenza Vaccine (#1) 2025 , 05/17/2019, 06/04/2018, Additional history exists HIV Screening 04/14/2025 Hepatitis C Screening 04/14/2025 Social Influencers of Health Screening 04/14/2025 DTaP,Tdap,and Td Vaccines (10 - Td or Tdap) 11/04/2026 11/04/2016, 05/10/2016, 10/12/2009, Additional history exists RSV Immunization Adult Patients (1 - 1-dose 75+ series) 02/15/2067 Hepatitis B Vaccines Completed 1992, 1992, 1992 HIB Vaccines Completed 06/26/1993, 08/29, 1992, Additional history exists IPV Vaccines Completed 11/25/1996, 09/27, 06/26/1993, Additional history exists Meningococcal ACWY Vaccine Completed 10/12/2009 MMR Vaccines Completed 10/16/2018, 07/1996, 06/26/1993 Hepatitis A Vaccines Aged Out No long er eligible based on patient's age to complete this topic Meningococcal B Vaccine Aged Out No l onger eligible based on patient's age to complete this topic Pneumococcal Vaccine: Pediatrics (0 to 5 Years) and At-Risk Patients (6 to 49 Years) Aged Out No longer eligible based on patient's age to complete this topic RSV Immunization Patients Under 20 months Aged Out No longer eligible based on patient's age to complete this topic Varicella Vaccines Aged Out No longer eligible based on patient's age to complete this topic Procedures Procedure Name Priority Date/Time Associated Diagnosis Comments CT ANGIO ABDOMEN PELVIS WO AND/OR W CONTRAST Routine 05/12/2025 3:26 PM EDT Venous insufficiency (chronic) (peripheral) from Last 3 Months Results * CT Angio Abdomen Pelvis wo and/or w Contrast (05/12/2025 3:26 PM EDT) Anatomical Region Laterality Modality Body Computed Tomogra phy 05/13/2025 11:5 4 PM EDT Impressions 05/13/2025 11:57 PM EDT Impression: No venous compression anatomy. IVC and iliac veins are patent. -------- FINAL REPORT -------- Dictated By: Nelly Osuna Dictated Date: 05/13/2025 23:54 ET Assigned Physician: Nelly Osuna Reviewed and Electronically Signed By: Nelly Osuna Signed Date: 05/13/2025 23:57 ET Workstation ID: [id number] Transcribed By: Self Edit Transcribed Date: 05/13/2025 23:54 ET Narrative 05/13/2025 11:[address] angiography abdomen and pelvis INDICATION: VENOUS STENOSIS,PAIN SWELLING LOWER EXTREMITY Comparison: None TECHNIQUE: CT angiography of the abdomen and pelvis following the intravenous administration of 100cc Isovue 370. Multiplanar reformats. The examination was performed utilizing dose reduction techniques. Total DLP Dose Vasculature: Aorta and branch vessels are patent. There is no venous compression anatomy. IVC and iliac veins are patent. Nonvascular findings: Lung bases: Clear. Spleen: Normal. Pancreas: Normal. Liver: Normal. Gallbladder/biliary: Normal. Adrenals: Normal. Kidneys: Normal. Bowel/mesentery: No free air, free fluid, obstruction or focal inflammatory change. Lymph nodes: No pathologically enlarged lymph nodes, there are reactive retroperitoneal nodes. Bladder: Normal. Pelvic organs: Normal. Osseous structures: No acute osseous abnormality. Procedure Note Nelly Osuna MD - 05/14/2025 CT angiography abdomen and pelvis INDICATION: VENOUS STENOSIS,PAIN SWELLING LOWER EXTREMITY Comparison: None TECHNIQUE: CT angiography of the abdomen and pelvis following theintravenous administration of 100cc Isovue 370. Multiplanar reformats. Theexamination was performed utilizing dose reduction techniques. Total DLPDose Vasculature: Aorta and branch vessels are patent. There is no venous compressionanatomy. IVC and iliac veins are patent. Nonvascular findings: Lung bases: Clear. Spleen: Normal. Pancreas: Normal. Liver: Normal. Gallbladder/biliary: Normal. Adrenals: Normal. Kidneys: Normal. Bowel/mesentery: No free air, free fluid, obstruction or focalinflammatory change. Lymph nodes: No pathologically enlarged lymph nodes, there are reactiveretroperitoneal nodes. Bladder: Normal. Pelvic organs: Normal. Osseous structures: No acute osseous abnormality. IMPRESSION: Impression: No venous compression anatomy. IVC and iliac veins are patent. -------- FINAL REPORT -------- Dictated By: Nelly Osuna Dictated Date: 05/13/2025 23:54 ET Assigned Physician: Nelly Osuna Reviewed and Electronically Signed By: Nelly Osuna Signed Date: 05/13/2025 23:57 ET Workstation ID: [id number] Transcribed By: Self Edit Transcribed Date: 05/13/2025 23:54 ET Carlos Briggs MD IMG CT PROCEDURES Final Re sult from Last 3 Months Insurance [facility] [address]
--- OUTSIDE RECORDS SUMMARY | 2025-05-19 12:28 | XMS_ITS | Encounter Summary ---
Author Organization [facility] Address [address] [place] [phone] Phone Care Team Providers Care Single Pass Soil Stabilizer Operator Name Role Phone Nick Lobo MD Primary Care Provider Myron villeda Encounter Details Date Type Department Care Team (Late st Contact Info) Description 04/13/2010 Documentation EM Family Medicine [address] [place] [address] Family Medicine, Physician [address] [place], [place] [address] Social History Tobacco Use Types Packs/Day Years [...] on filedocumented in this encounter Care Teams Single Pass Soil Stabilizer Operator Relationship Specialty Start Date End Date Nick Lobo MD PCP - General 03/07/17 01/09/23 documented as of this encounter
== END 2025-05-19 11:42 | disposition home or self-care (01) ==
LOC: HO.HOS 10:24
PROVIDERS: PCP Internal Medicine; Visit Provider Physician Assistant
DX: S46.212A Strain of muscle, fascia and tendon of other parts of biceps, left arm, initial encounter (principal)
CPT/HCPCS: 99204

== ENCOUNTER → 2025-05-19 10:23 | Outpatient (BNVA) | payer OTHER, SELFPAY | PROVIDERS: PCP Internal Medicine; Visit Provider Physician Assistant | DX: M25.522 Pain in left elbow (principal); S46.212A Strain of muscle, fascia and tendon of other parts of biceps, left arm, initial encounter | CPT/HCPCS: 99202 ==

== ENCOUNTER 2025-06-22 19:23 | Outpatient (REF) | payer OTHER, SELFPAY ==
--- OUTSIDE RECORDS SUMMARY | 2025-05-24 07:14 | XMS_ITS | Continuity of Care Document ---
Author Organization [facility] Address [address] [place] [address] Phone Care Team Providers Care Publishing Manager Name Role Phone Jerry PEREZ, RVT, MAURILIO, Bossman Unavailable U navailable Allergies, Adverse Reactions, Alerts Substance Reaction Status Criticality PENICILLIN Active No Information Medications Medication Instructions Dosage Effective Dates (start - stop) Status Comments No Drug Therapy Prescribed Procedures Procedure Date Office/Outpt E&M Established 15 Mins- CT & [place] Duplex Scan-extrem Veins; Comp- CT & [place] Duplex Scan-extrem Veins; Uni/ CT & [place] J Inj Scleros Solut; Mx Veins 1- CT & [place] J Ultrason Guidan Needle Bx-rad- CT & [place] J Duplex Scan-extrem Veins; Uni/ CT & [place] J Ultrason Guidan Needle Bx-rad- CT & [place] J Inj Sclerosing Solution; Sngl- CT & [place] J Office/Outpt E&M Established 15 Mins- CT & [place] Duplex Scan-extrem Veins; Comp- CT & [place] Office/Outpt E&M Established 25 Mins Oct Duplex Scan-extrem Veins; Uni/ Endovenous Laser, 1st Vein Endovenous laser vein addon Endovenous Laser, 1st Vein Endovenous laser vein addon Duplex Scan-extrem Veins; Uni/ 23 Unlisted Proc Vascular Surg Endovenous Laser, Vein Endovenous laser vein addon Endovenous Laser, 1st Vein Endovenous laser vein addon Advance Directives Directive Yes / No Effective Date File Name No Information Encounters Encounter Description Practice Location Reason(s) For Visit Diagnoses Date Provider Providers Copied on Encounter [facility] MD GARCIA, [address] [place] [address] Dr Arrington [address] 1000Yeyo [place], [id number], [place] tel:[phone] [facility] No Information 5 eJrry PEREZ RVT, RPVI Robert. [address] [facility], [place] [address], [place], [place], [id number] , [place]. tel:[phone] Office/Outpt E&M Established 15 Mins- CT & [place] [facility] MD GARCIA, [address] [place] [address] Dr Arrington 1000[address] 1000Yeyo [place], [id number], [place] tel:[phone] [place] Venous insufficiency (chronic) (peripheral) Oct- 5 Jerry PEREZ RVT, RPVI Robert. [address] [place] [address], [place], [place], [id number] , [place]. tel:[phone] Referring Provider: Teressa Tucker MD, [address] [place] [address] , [address] [place] [address] D/B/A: [facility], [place], [address]. tel:[phone] [facility] MD GARCIA, [address] [place] [address] Dr Arrington 1000[address] 1000Yeyo [place], [id number], [place] tel:[phone] [place] Chronic venous hypertension (idiopathic) with other complications of bilateral lower extremity Oct- 5 Jerry PEREZ RVT, RPVI Robert. [address] [facility], [address], [place], [place], [id number] , [place]. tel:[phone] Referring Provider: Teressa Tucker MD, [address] [place] [address] , [address] D/B/A: [facility] [place], [address]. tel:[phone] [facility], [address] [place] [address] Dr Arrington 1000Suite [place]eyo Villar [place], [id number], [place] tel:[phone] [facility] Encounter for follow-up examination after completed treatment for conditions other than malignant neoplasmChron ic venous hypertension (idiopathic) with other complications of right lower extremity 5 Jerry PEREZ RVT, MAURILIO Keita. [address] [facility], [address], [facility], [place], [id number] , [place]. tel: [phone] Referring Provider: Teressa Tucker MD, [address] [facility] , [address] D/B/A: [place], [address]. tel:[phone] [facility], [address] [place] [address] Dr Arrington 1000SuYeyo jarvis [place], [id number], [place] tel:[phone] [facility] Chronic venous hypertension (idiopathic) with inflammation of right lower extremity 5 Jerry PEREZ RVT, MAURILIO Keita. [address] [facility], [address], [facility], [place], [id number] , [place]. tel: [phone] Referring Provider: Teressa Tucker MD, [address] [facility] , [address] D/B/A: [facility] [place], [address]. tel:[phone] [facility], [address] [place] [address] [address]Suite [place]eyo Villar [place], [id number], [place] tel:[phone] [facility] Encounter for follow-up examination after completed treatment for conditions other than malignant neoplasmChron ic venous hypertension (idiopathic) with other complications of left lower extremity 5 Jerry PEREZ RVT, MAURILIO Keita. [address] [facility], [address], [facility], [place], [id number] , [place]. tel: [phone] Referring Provider: Teressa Tucker MD, [address] [facility] , [address] [place] [address] D/B/A: [facility] [place], [address]. tel:[phone] [place] [facility], [address] [place] [address] [address]Suite [place]eyo Villar [place], [id number], [place] tel:[phone] [facility] Chronic venous hypertension (idiopathic) with inflammation of left lower extremity 5 Jerry PEREZ RVT, RPVI Robert. [address] [place] [address], [place], [place], [id number] , [place]. tel:[phone] Referring Provider: Teressa Tcuker MD, [address] [facility] , [address] [place] [address] D/B/A: [place], [address]. tel:[phone] Office/Outpt E&M Established 15 Mins- CT & [place] [facility], [address] [place] [address] [address]Suite [place]eyo Villar [place], [id number], [place] tel:[phone] [place] Varicose veins of bilateral lower extremities with other complications Pain in right lower legPain in left lower legPain in right legRestless legs syndromeLymph edema, not elsewhere classifiedPai n in left legHereditary lymphedemaCra mp and spasmLocalize d edema 5 Jerry PEREZ RVT, RPVI Robert. [address] [place] [address], [place], [place], [id number] , [place]. tel:[phone] Referring Provider: Teressa Tucker MD, [address] [facility] , [address] [place] [address] D/B/A: [place], [address]. tel:[phone] [facility], [address] [place] [address] [address]SuYeyo jarvis [place], [id number], [place] tel:[phone] [place] Chronic venous hypertension (idiopathic) with other complications of bilateral lower extremity 5 Jerry PEREZ RVT, RPVI Robert. [address] [place] [address] Suite [facility], [place], [place], [id number] , [place]. tel:[phone] Referring Provider: Teressa Tucker MD, [address], [address] [place] D/B/A: [place], [address]. tel:[phone] Office/Outpt E&M Established 25 Mins [facility], [address] [place] [address] [address]Suite [place]eyo Villar [place], [id number], [place] tel:[phone] [facility] Venous insufficiency (chronic) (peripheral)B osmin mass index (BMI) 45.0-49.9, adult Apr- 3 Babak Davis. [address] [place] [address], [place], [address], [place]. [phone] Referring Provider: Teressa Tucker MD, [address] [facility] [address], [address] [place] [address] D/B/A: [place], [address]. tel:[phone] [place] [facility], [address] [place] [address] [address] 1000Yeyo [place], [id number], [place] tel:[phone] [place] Encntr for f/u exam aft trtmt for cond oth than malig neoplmVenous insufficiency (chronic) (peripheral) Sep- 3 Babak Davis. [address] [place] [address], Suite [facility], [place], [address], [place]. [phone] Referring Provider: Teressa Tucker MD, [address], [address] [place] D/B/A: [place], [address]. tel:[phone] [facility], [address] [place] [address] [address] 1000Yeyo [place], [id number], [place] tel:[phone] [facility] Venous insufficiency (chronic) (peripheral) 3 Babak THORPE K Ryan. [address] [facility], [address], [place], [address], [place]. tel:[phone] Referring Provider: Teressa Tucker MD, [address] [facility] [address], [address] [place] [address] D/B/A: sent[facility]il [facility] [place], [address]. tel:[phone] [facility], [address] [place] [address] [address] 1000Yeyo MD, [id number], [place] tel:[phone] [place] Venous insufficiency (chronic) (peripheral) 3 Babak PEREZ FACS T MAURILIO Davis. [address] [facility], Suite [facility], [place], [address], [place]. [phone] Referring Provider: Teressa Tucker MD, [address] [facility] [address], [address] [place] [address] D/B/A: sent[facility]il [facility] [place], [address]. tel:[phone] [facility], [address] [place] [address] [address] 1000Yeyo [place], [id number], [place] tel:[phone] [place] Encntr for f/u exam aft trtmt for cond oth than malig neoplmVaricos e veins of right lower extremities with pain 3 Babak PEREZ FACS T MAURILIO Davis. [address] [facility], Suite [facility], [place], [address], [place]. tel:[phone] Referring Provider: Teressa Tucker MD, [address] [facility] [address], [address] [place] D/B/A: senthil [facility] [place], [address]. tel:[phone] [facility], [address] [place] [address] [address] 1000Yeyo [place], [id number], [place] tel:[phone] [place] Varicose veins of right low extrm w oth complications 3 Babak PEREZ FACS RVT MAURILIO Davis. [address] [facility], [address], [place], [address], [place]. tel:[phone] Referring Provider: Teressa Tucker MD, [address], [address] [place] [address] D/B/A: [place], [address]. tel:[phone] [facility], [address] [place] [address] Dr [address], [place], [id number], tel:[phone] [place] Varicose veins of right low extrm w oth complications [address] T [facility] [employer] Ryan. [address] [place] [address], [place], [address], [place]. [phone] Referring Provider: Teressa Tucker MD, [address] [facility] , [address] [place] [address] D/B/A: [place], [address]. tel:[phone] [facility], [address] [place] [address] [address], [place], [id number], [place] tel:[phone] [facility] Varicose veins of right low extrm w oth complications 3 Babak PEREZ FACS T LIAM Davis. [address] [place] [address], [place] [address], [place], [address], [place]. [phone] Referring Provider: Teressa Tucker MD, [address] [facility] [address], [address] [place] [address] D/B/A: senth[place], [address]. tel:[phone] Family History Family Member Type Diagnosis Age At Onset No Information Payers Payer name Insurance type Covered democrat ID Rafy larson(s) [facility] [id number] Social History Type Description Quantity Date Captured Comments Sex Male Smoking Status No Information Chief Complaint And Reason For Visit No Information Reason For Referral Reason For Referral No Information Plan Of Treatment Date Type Action Status Goal Diet education completed Goal Diet education completed Goal Diet education completed Goal Tobacco cessation counseling completed Referral Ordered: Weight management: Referral to physician timeframe: 3 Months (related to Body mass index (BMI) 45.0-49.9, adult) ordered Referral Ordered: Weight management: Referral to physician timeframe: 3 Months (related to Body mass index (BMI) 45.0-49.9, adult) ordered History Of Present Illness Encounter Date Complaint History Of Prese nt Illness No Information Functional Status Date Functional Assessmen t No Information Medications Administered Medication Instructions Dosage Effective Dates (start - stop) Status Comments No Drug Therapy Prescribed Instructions Date Instruction Additional Infor mation Compression stocking usage as conservative measure Related to Venous insufficiency (chronic) (peripheral) Lifestyle education Related to B osmin mass index (BMI) 45.0-49.9, adult Giving Encouragement to exercise Related to Body mass index (BMI) 45.0-49.9, adult Diet education Related to Body mass index (BMI) 45.0-49.9, adult Patient education booklet given Related to Venous insufficiency (chronic) (peripheral) Pre and post instruc tions reviewed and provided Related to Varicose veins of bilateral lower extremities with other complications Patient education booklet given Related to Varicose veins of bilateral lower extremities with other complications Lifestyle education Related to B osmin mass index (BMI) 45.0-49.9, adult Giving Encouragement to exercise Related to Body mass index (BMI) 45.0-49.9, adult Diet education Related to Body mass index (BMI) 45.0-49.9, adult Diet education Related to Body mass index [BMI] 45.0-49.9, adult Giving Encouragement to Exercise Related to Body mass index [BMI] 45.0-49.9, adult Assessments Type Assessment Date No Information Patient Care Teams Name Effective Dates (start - stop) Status Members No Information
--- NOTE | ~2025-06-22 | MR_ITS ---
EXAMINATION: MR ELBOW WITHOUT CONTRAST, LEFT CLINICAL INFORMATION: Evaluate partial left distal biceps tendon tear COMPARISON: X-ray 05/06/2022 TECHNIQUE: MRI of the elbow was performed using routine sequences on a high-field scanner. FINDINGS: BONE AND JOINTS: Alignment is anatomic. Joint spaces are maintained. No evidence of acute fracture or dislocation. There are areas of mild T2 signal in the visualized bones, likely reflecting physiological marrow. No suspicious marrow signal changes. Joint spaces are maintained. No significant chondral loss. No significant joint effusion. TENDONS AND MUSCLES: Common flexor tendon: Intact Common extensor tendon: Intact Biceps tendon: Tendon is intact. Mild T2 signal in the proximal tendon, could reflect physiological variant signal versus mild edema/strain. No measurable tear or retraction.. No significant peritendinous edema or fluid. Brachialis tendon: Intact Triceps tendon: Intact Muscles: No measurable muscle tear, or significant edema. LIGAMENTS: Ulnar collateral ligament: Intact Lateral collateral ligament: Intact ULNAR NERVE: Within normal limits SOFT TISSUE: Mild posterior subcutaneous edema MR/MR elbow LT wo con IMPRESSION: 1. Biceps tendon appears intact. No evidence of measurable tear or retraction. Mild T2 signal in the proximal tendon, could reflect mild physiological variant signal versus mild edema/strain.. No significant peritendinitis edema/fluid. 2. No evidence of acute fracture or dislocation. 3. Mild posterior subcutaneous soft tissue edema. Electronically signed by: Erick Wood MD 06/24/2025 07:43 AM EST
--- OUTSIDE RECORDS SUMMARY | 2025-06-22 19:31 | XMS_ITS | Encounter Summary ---
Author Organization [facility] Address [address] [place] [address] Phone Care Team Providers Care Supervisor Inspecting Name Role Phone Nick Lobo MD Primary Care Provider Myron villeda Encounter Details Date Type Department Care Team (Late st Contact Info) Description 04/13/2010 Documentation EM Family Medicine [address] [place] [address] Family Medicine, Physician [address] [place], [place] [address] Social History Tobacco Use Types Packs/Day Years [...] on filedocumented in this encounter Care Teams Supervisor Inspecting Relationship Specialty Start Date End Date Nick Lobo MD PCP - General 03/07/17 01/09/23 documented as of this encounter
--- OUTSIDE RECORDS SUMMARY | 2025-06-22 19:31 | XMS_ITS | Clinical Summary ---
Author Organization [facility] Address [address] [place] [phone] Phone Care Team Providers Care Paper Folding Machine Operator Name Role Phone Unavailable Primary Care Provider [...]
--- OUTSIDE RECORDS SUMMARY | 2025-06-22 19:31 | XMS_ITS | Encounter Summary ---
Author Organization [facility] Address [address] [place] [address] Phone Care Team Providers Care Booth Cleaner Name Role Phone Nick Lobo MD Primary Care Provider Myron villeda Encounter Details Date Type Department Care Team (Late st Contact Info) Description 03/13/2017 Conversion Encounter [facility] - [address] [address] Social History Tobacco Use Types Packs/Day Years [...] on filedocumented in this encounter Care Teams Booth Cleaner Relationship Specialty Start Date End Date Nick Lobo MD PCP - General 03/07/17 01/09/23 documented as of this encounter
== END 2025-06-22 19:24 | disposition home or self-care (01) ==
LOC: HO.MRI 19:23
PROVIDERS: PCP Internal Medicine; Visit Provider Physician Assistant
DX: S46.219A Strain of muscle, fascia and tendon of other parts of biceps, unspecified arm, initial encounter (principal)
CPT/HCPCS: 73221

== ENCOUNTER → 2025-06-22 19:24 | Outpatient (BNV) | payer OTHER, SELFPAY | PROVIDERS: PCP Internal Medicine; Visit Provider Radiology Diagnostic Ultrasound | DX: S46.212A Strain of muscle, fascia and tendon of other parts of biceps, left arm, initial encounter (principal); R60.0 Localized edema | CPT/HCPCS: 73221 ==

== ENCOUNTER 2025-07-15 12:56 | Outpatient (REF) | payer OTHER, SELFPAY ==
[2025-07-16 10:44] LABS: Rubeola IgG (Measles) 142.00 AU/mL
[2025-07-18 04:23] LABS: HBS Num1 30.02 mIU/mL (0-7.99); HBc Num1 0.06 S/CO (0.00-0.79); HBsAGNum1 0.36 S/CO (0.00-0.99); Hepatitis B Surface Antigen Negative (Negative); ~Hepatitis B Surface Antibody REACTIVE (Nonreactive)
== END 2025-07-15 12:57 | disposition home or self-care (01) ==
LOC: HO.LAB 12:56
PROVIDERS: Absent Provider Internal Medicine; PCP Internal Medicine; Visit Provider Physician Assistant
DX: M75.22 Bicipital tendinitis, left shoulder (principal); M79.89 Other specified soft tissue disorders; Z01.84 Encounter for antibody response examination
CPT/HCPCS: 36415; 86704; 86706; 86735; 86762; 86765; 86787; 87340

== ENCOUNTER 2025-07-15 12:56 | Outpatient (AMB) | payer OTHER, SELFPAY ==
--- OUTSIDE RECORDS SUMMARY | 2025-05-24 07:14 | XMS_ITS | Continuity of Care Document ---
Author Organization [facility] Address [address] [place] [address] Dr [address]rington [address] [place] [address] Phone Care Team Providers Care Refrigeration Engineering Teacher Name Role Phone Jerry PEREZ, VARGAS, Bossmna THORPE Unavailable U navailable Allergies, Adverse Reactions, Alerts Substance Reaction Status Criticality PENICILLIN Active No Information Medications Medication Instructions Dosage Dose Quantity Effective Dates (start - stop) Status Indication Fill Status Comments No Drug Therapy Prescribed Advance Directives Directive Yes / No Effective Date File Name No Information Encounters Encounter Description Practice Location Reason(s) For Visit Diagnoses Date Provider Encounter Disposition [place] [facility], [address] [place] [address] Dr Arrington 1000SuYeyo jarvis [place], [id number], tel:[phone] [facility] - [facility] No Information 5 Jerry PEREZ RVT, RPVI Robert. [address] [place] [address], [id number] , [place]. tel:[phone] [facility], [address] [place] [address] Dr Arrington 1000SuYeyo jarvis [place], [id number], [place] tel:[phone] [facility] - [facility] Venous insufficiency (chronic) (peripheral) 5 Jerry PEREZ RVT, RPVI Robert. [address] [place] [address], [id number] , [place]. tel:[phone] [facility], [address] [place] [address] Dr Arrington 1000SuYeyo jarvis [place], [id number], [place] tel:[phone] CVR - [facility] Chronic venous hypertension (idiopathic) with other complications of bilateral lower extremity 5 Jerry PEREZ RVT, RPVI Robert. [address] [place] [address], [place], [place], [id number] , [place]. tel: [phone] [facility], [address] [place] [address] Dr Arrington 1000Suite [place]o Villar [place], [id number], [place] tel:[phone] [place] Encounter for follow-up examination after completed treatment for conditions other than malignant neoplasmChron ic venous hypertension (idiopathic) with other complications of right lower extremity 5 Jerry PEREZ RVT, MAURILIO Keita. [address] [place] [address], [place], [place], [id number] , [place]. tel: [phone] [facility], [address] [place] [address] Dr Arrington 1000Suite [place] Villar [place], [id number], [place] tel:[phone] CVR - [facility] Chronic venous hypertension (idiopathic) with inflammation of right lower extremity 5 Jerry PEREZ RVT, RPVI Robert. [address] [place] [address], [place], [place], [id number] , [place]. tel: [phone] [facility], [address] [place] [address] Dr Arrington 1000Suite [place]o Villar MD, [id number], [place] tel:[phone] CVR - [facility] Encounter for follow-up examination after completed treatment for conditions other than malignant neoplasmChron ic venous hypertension (idiopathic) with other complications of left lower extremity 5 Jerry PEREZ RVT, MAURILIO Keita. [address] [place] [address], [facility], [place], [id number] , [place]. tel: [phone] [facility], [address] [place] [address] Dr Arrington 1000SuYeyo jarvis [place], [id number], [place] tel:[phone] CVR - [facility] Chronic venous hypertension (idiopathic) with inflammation of left lower extremity 5 Jerry PEREZ RVT, MAURILIO Keita. [address] [place] [address], [facility], [id number] , [place]. tel:[phone] [facility] MD GARCIA, [address] [place] [address] Dr Arrington 1000Suantoine 999Yeyo [place], [id number], [place] tel:[phone] [place] Varicose veins of bilateral lower extremities with other complications Pain in right lower legPain in left lower legPain in right legRestless legs syndromeLymph edema, not elsewhere classifiedPai n in left legHereditary lymphedemaCra mp and spasmLocalize d edema 5 Jerry PEREZ, VARGAS, MAURILIO Keita. [address] [place] [address], [place], [id number] , [place]. tel:[phone] [facility], [address] [place] [address] Dr Arrington 999Yeyo jarvis MD, [id number], [place] tel:[phone] CVR - [facility] Chronic venous hypertension (idiopathic) with other complications of bilateral lower extremity 5 Jerry PEREZ RVT, MAURILIO Keita. [address] [place] [address], [place], [id number] , [place]. tel:[phone] [facility], [address] [place] [address] Dr Arrington [address] [place], [id number], [place] tel:[phone] [place] Venous insufficiency (chronic) (peripheral)B osmin mass index (BMI) 45.0-49.9, adult Apr-2 3 Babak PEREZ FACS VARGAS Davis. [address] [place] [address], [place], [address], [place]. tel:[phone] [facility] MD GARCIA, [address] [place] [address] Dr Arrington 1000SuYeyo jarvis [place], [id number], [place] tel:[phone] [place] Encntr for f/u exam aft trtmt for cond oth than malig neoplmVenous insufficiency (chronic) (peripheral) Mar-1 3-202 3 Babak Davis. [address] [facility], [address], [place], [address], [place]. tel: [phone] [facility], [address] [place] [address] [address], [place], [id number], [place] tel:[phone] [place] Venous insufficiency (chronic) (peripheral) 3 Babak PEREZ FACS Gloria Davis. [address] [facility], [address], [place], [address], [place]. tel: [phone] [facility], [address] [place] [address] [address], [place], [id number], [place] tel:[phone] [place] Venous insufficiency (chronic) (peripheral) 3 Babak Davis. [address] [facility], [address], [place], [address], [place]. tel: [phone] [facility], [address] [place] [address] [address], [place], [id number], [place] tel:[phone] [place] Encntr for f/u exam aft trtmt for cond oth than malig neoplmVaricos e veins of right lower extremities with pain 3 Babak Davis. [address] [facility], [address], [place], [address], [place]. tel: [phone] [facility], [address] [place] [address] [address], [place], [id number], [place] tel:[phone] [place] Varicose veins of right low extrm w oth complications 3 Babak Davis. [address] [facility], [address], [place], [address], [place]. tel: [phone] [facility], [address] [place] [address] [address], [place], [id number], tel:[phone] [place] Varicose veins of right low extrm w oth complications 3 Babak PEREZ FACS [facility] MAURILIO Davis. [address] [place] [address], [place], [address], [place]. [phone] [facility], [address] [facility] [address] 1000Yeyo [place], [id number], tel:[phone] [place] Varicose veins of right low extrm w oth complications 3 Babak PEREZ FACS Gloria Davis. [address] [place] [address], [place], [address], [place]. [phone] Family History Family Member Type Diagnosis Age At Onset No Information Payers Payer name Insurance type Identifiers Authorization(s) Com ments [facility] doyle ID: [id number] Name: Coverage Status Eligibility Check on: [id number] nship to Subscriber: selfPayer Address: [place] [address], [place], [address], [facility] Phone: [phone] Social History Type Description Quantity Date Captured Comments Sex Male Smoking Status No Information Current Gender Male (finding) Chief Complaint And Reason For Visit No Information Plan Of Treatment Date Type Action Status Goal Diet education completed Goal Diet education completed Goal Tobacco cessation counseling completed Goal Diet education completed Referral Ordered: Weight management: Referral to physician timeframe: 3 Months (related to Body mass index (BMI) 45.0-49.9, adult) ordered Referral Ordered: Weight management: Referral to physician timeframe: 3 Months (related to Body mass index (BMI) 45.0-49.9, adult) ordered History Of Present Illness Encounter Date Complaint History Of Prese nt Illness No Information Functional Status Date Description Comments No Information Medications Administered Medication Instructions Dosage Dose Quantity Effective Dates (start - stop) Status Indication Fill Status Comments No Drug Therapy Prescribed Instructions Date Instruction Additional Infor john Patient education booklet given Related to Venous insufficiency (chronic) (peripheral) Compression stocking usage as conservative measure Related to Venous insufficiency (chronic) (peripheral) Lifestyle education Related to B osmin mass index (BMI) 45.0-49.9, adult Giving Encouragement to exercise Related to Body mass index (BMI) 45.0-49.9, adult Diet education Related to Body mass index (BMI) 45.0-49.9, adult Pre and post instruc tions reviewed and [...]
--- NOTE | 2025-07-15 13:02 | MHC.OFFVIS ---
Intake Visit Reasons: OV - left elbow MRI review Intake Note: Tyrese is 35 year Allergies Penicillins (PENICILLINS) Allergy (Unknown, Verified 05/19/25 10:48) Rash HPI HPI OV - left elbow MRI review: Details: Patient is a 35-year-old right-hand dominant male who presents to the office today for MRI review of the left elbow. Patient states that while he was at work on 05/06/2025 he was lifting a heavy box and felt ?rubber band snapping sensation?. Patient reports that his pain and range of motion has slightly improved. No additional complaints. [facility] Medical History Neuropathy NASIM on CPAP GERD (gastroesophageal reflux disease) Neuropathy Umbilical hernia Surgical History H/O vasectomy History of hernia surgery History of tonsillectomy History of ear surgery History of nasal surgery Family History Father Back problem Mother Back problem Stroke Brother Chronic mental illness Depression Daughter No problems noted. Son No problems noted. Son No problems noted. 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 Full extension and flexion. Distal biceps tendon is palpable. NVI. Psych Appearance: grossly normal Mental Status: mental status grossly normal Attitude: cooperative Assessment & Plan Assessment & Plan (1) Biceps tendonitis on left: Code(s): M75.22 - Bicipital tendinitis, left shoulder Category: Medical Plan Patient is a 35-year-old right-hand dominant male who presents to the office today for MRI review of the left elbow. Patient states that while he was at work on 05/06/2025 he was lifting a heavy box and felt ?rubber band snapping sensation?. Patient reports that his pain and range of motion has slightly improved. No additional complaints. While in the office today, I discussed the MRI findings with the patient. MRI suggests that the biceps tendon appears to be intact. There is no evidence of measurable tear or retraction. There is mild T2 signal in the proximal tendon which could reflect mild strain. No evidence of acute fracture or dislocation. Mild posterior subcutaneous soft tissue edema. I educated the patient that there are no surgical indications at this time. He may wean back into normal activities as tolerated. I provided him with a work note to continue office duty until 08/01/2024 in which he may return back to work full-time regular duty. He will follow up PRN, sooner if needed. MRI of the left elbow obtained on 06/22/2025: IMPRESSION: 1. Biceps tendon appears intact. No evidence of measurable tear or retraction. Mild T2 signal in the proximal tendon, could reflect mild physiological variant signal versus mild edema/strain.. No significant peritendinitis edema/fluid. 2. No evidence of acute fracture or dislocation. 3. Mild posterior subcutaneous soft tissue edema. Coding Level of Care Code Est Pt Level 3 (38714) Add On Problem Visit Only Diagnoses Biceps tendonitis on left M75.22
--- OUTSIDE RECORDS SUMMARY | 2025-07-15 14:43 | XMS_ITS | Clinical Summary ---
Author Organization [facility] Address [address] [place] [address] Phone Care Team Providers Care Renewals Representative Name Role Phone Unavailable Primary Care Provider [...]
--- OUTSIDE RECORDS SUMMARY | 2025-07-15 14:44 | XMS_ITS | Encounter Summary ---
Author Organization [facility] Address [address] [place] [address] Phone Care Team Providers Care Custom Tailor Name Role Phone Nick Lobo MD Primary Care Provider Myron villeda Encounter Details Date Type Department Care Team (Late st Contact Info) Description 04/13/2010 Documentation EM Family Medicine [address] [place] [address] Family Medicine, Physician [address] [place], [place] [address] Social History Tobacco Use Types Packs/Day Years [...] on filedocumented in this encounter Care Teams Custom Tailor Relationship Specialty Start Date End Date Nick Lobo MD PCP - General 03/07/17 01/09/23 documented as of this encounter
--- OUTSIDE RECORDS SUMMARY | 2025-07-15 14:44 | XMS_ITS | Encounter Summary ---
Author Organization [facility] Address [address] [place] [phone] Phone Care Team Providers Care Laundry Machine Mechanic Name Role Phone iNck Lobo MD Primary Care Provider Myron villeda Encounter Details Date Type Department Care Team (Late st Contact Info) Description 03/13/2017 Conversion Encounter [facility] - [address] [address] Social History Tobacco Use Types Packs/Day Years [...] on filedocumented in this encounter Care Teams Laundry Machine Mechanic Relationship Specialty Start Date End Date Nick Lobo MD PCP - General 03/07/17 01/09/23 documented as of this encounter
--- OUTSIDE RECORDS SUMMARY | 2025-07-15 14:44 | XMS_ITS | Clinical Summary ---
Author Organization [facility] Address [address] [place] [address] Phone Care Team Providers Care Health Informatics Specialist Name Role Phone Unavailable Primary Care Provider Unavailabl e Encounters Date Type Department Care Team Description 05/12/2025 3:11 PM EDT - 05/12/2025 11:59 PM EDT Hospital Encounter [facility] CT Scan [address] [place] [address] Venous insufficiency (chronic) (peripheral) Discharge [...] Signed Date: 05/13/2025 23:57 ET Workstation ID: [id number] Transcribed By: Self Edit Transcribed Date: 05/13/2025 [...] Signed Date: 05/13/2025 23:57 ET Workstation ID: [id number] Transcribed By: Self Edit Transcribed Date: 05/13/2025 23:54 ET Carlos Briggs MD IMG CT PROCEDURES Final Re sult from Last 3 Months Insurance [facility]
== END 2025-07-15 13:28 | disposition home or self-care (01) ==
LOC: HO.HOS 12:56
PROVIDERS: PCP Internal Medicine; Visit Provider Physician Assistant
DX: M75.22 Bicipital tendinitis, left shoulder (principal)
CPT/HCPCS: 99213; G2211

== ENCOUNTER 2025-07-18 08:40 | Outpatient (AMB) | payer OTHER, SELFPAY ==
--- NOTE | 2025-07-18 08:45 | MHC.PC.OV ---
Intake Visit Reasons: Flu shot Allergies Penicillins (PENICILLINS) Allergy (Unknown, Verified 05/19/25 10:48) Rash Tobacco use date assessed: 10/15/24 Dental Screening Dental Screen Date: 10/15/24 [facility] Medical History Neuropathy NASIM on CPAP GERD (gastroesophageal reflux disease) Neuropathy Umbilical hernia Surgical History H/O vasectomy History of hernia surgery History of tonsillectomy History of ear surgery History of nasal surgery Family History Father Back problem Mother Back problem Stroke Brother Chronic mental illness Depression Daughter No problems noted. Son No problems noted. Son No problems noted. 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 Cognitive needs: No Hearing needs: No Vision needs: No Questionnaire Thrive Questionnaire Date Thrive assessed: 10/15/24 I am a: Patient What is your living situation today?: I have a steady place to live Within the past 12 months, did the food you bought not last and you didn't have the money to get more?: Never true Within the past 12 months, did you worry whether your food would run out before you got money to buy more?: Never true Do you have trouble paying for medicines?: No Do you have trouble getting transportation to medical appointments?: No Do you have trouble paying your heating and electricity bill?: No Do you have trouble taking care of your child, family member or friend?: No Do you have trouble with day-to-day activities such as bathing, preparing meals, shopping, managing finances, etc.?: No Are you currently unemployed and looking for a job?: No Are you interested in more education?: No Currently or been in a relationship where the following occur: No concerns reported THRIVE Score: 0 NIMISHA-7 AMB Questionnaire NIMISHA-7 Date NIMISHA - 7 assessed: 10/15/24 Source: Developed by Drs. Bossman Basilio, Shannon Torres, Silvestre Meza and colleagues, with an educational oneil from [employer]. Physical exam (Primary Care) Tobacco/Smoking Status: Tobacco use Status Tobacco use date assessed 10/15/24 10/15/24 12:58 Patient Tobacco Use Status Never used Tobacco 05/19/25 10:49 e-Cigarette/Vaping Use Never Used 05/19/25 10:49 Thrive Assessment: Date of Thrive Assessment Date Thrive assessed 10/15/24 05/12/25 12:10 Currently or been in a relationship where the following occur: No concerns reported Coding
--- NOTE | 2025-07-18 08:49 | AM.OFFVISNUR ---
Intake Visit Reasons: Flu shot Allergies Penicillins (PENICILLINS) Allergy (Unknown, Verified 05/19/25 10:48) Rash Office Procedures Flu Questionnaire Does the patient have a severe egg allergy?: No Does the patient have severe life threatening allergies?: No Does the patient have a fever or illness today?: No Has the patient ever had Guillain-Southfield Syndrome?: No Has the patient ever had any past reaction to a flu shot?: No Immunizations Fluarix [id number] (PF) 45 mcg (15 mcg x 3)/0.5 mL IM syringe Performing Provider: Teressa Glover MD [place] [place] [facility] Administered by: Marni Lakhani RN on 07/18/25 09:17 Dose Route Admin Location Dispensed Lot Number Expiration Date [facility] Pelletizer 0.5 mL IM Left Deltoid 0.5 mL [id number] 01/24/26 [id number] Local Lift VIS Given Date VIS Provided VIS Publication Date 07/18/25 Single Vaccine 24 Eligibility Eligibility Date Funding Source Not [facility] Eligible 07/18/25 Private Assessment & Plan Assessment & Plan Orders: Orders Influenza [id number] Immunization Today Z23 - Encounter for immunization Coding
--- OUTSIDE RECORDS SUMMARY | 2025-07-18 09:03 | XMS_ITS | Encounter Summary ---
Author Organization [facility] Address [address] [place] [address] Phone Care Team Providers Care Winderman Name Role Phone Nick Lobo MD Primary Care Provider Myron villeda Encounter Details Date Type Department Care Team (Late st Contact Info) Description 03/13/2017 Conversion Encounter [facility] - [address] [address] Social History Tobacco Use Types Packs/Day Years [...] on filedocumented in this encounter Care Teams Winderman Relationship Specialty Start Date End Date Nick Lobo MD PCP - General 03/07/17 01/09/23 documented as of this encounter
--- OUTSIDE RECORDS SUMMARY | 2025-07-18 09:03 | XMS_ITS | Clinical Summary ---
Author Organization [facility] Address [address] [place] [address] Phone Care Team Providers Care Overlock Elastic Attacher Name Role Phone Unavailable Primary Care Provider [...]
--- OUTSIDE RECORDS SUMMARY | 2025-07-18 09:03 | XMS_ITS | Clinical Summary ---
Author Organization [facility] Address [address] [place] [address] Phone Care Team Providers Care Carpet Renovator Name Role Phone Unavailable Primary Care Provider Unavailabl e Encounters Date Type Department Care Team Description 05/12/2025 3:11 PM EDT - 05/12/2025 11:59 PM EDT Hospital Encounter [facility] CT Scan [address] [place] [address] Venous insufficiency (chronic) (peripheral) Discharge [...] Signed Date: 05/13/2025 23:57 ET Workstation ID: [id number] Transcribed By: Self Edit Transcribed Date: 05/13/2025 [...] Signed Date: 05/13/2025 23:57 ET Workstation ID: [id number] Transcribed By: Self Edit Transcribed Date: 05/13/2025 23:54 ET Carlos Brigsg MD IMG CT PROCEDURES Final Re sult from Last 3 Months Insurance [facility]
--- OUTSIDE RECORDS SUMMARY | 2025-07-18 09:03 | XMS_ITS | Encounter Summary ---
Author Organization [facility] Address [address] [place] [address] Phone Care Team Providers Care Platform Inspector Name Role Phone Nick Lobo MD Primary Care Provider Myron villeda Encounter Details Date Type Department Care Team (Late st Contact Info) Description 04/13/2010 Documentation EM Family Medicine [address] [place] [address] Family Medicine, Physician [address] [place], [place] [address] Social History Tobacco Use Types Packs/Day Years [...] on filedocumented in this encounter Care Teams Platform Inspector Relationship Specialty Start Date End Date Nick Lobo MD PCP - General 03/07/17 01/09/23 documented as of this encounter
== END 2025-07-18 09:18 | disposition home or self-care (01) ==
LOC: HO.HMCH 08:41
PROVIDERS: PCP Internal Medicine; Visit Provider Internal Medicine
DX: Z23 Encounter for immunization (principal)

== ENCOUNTER → 2025-07-18 08:40 | Outpatient (BNVA) | payer OTHER, SELFPAY | PROVIDERS: PCP Internal Medicine; Visit Provider Internal Medicine | DX: Z23 Encounter for immunization (principal) | CPT/HCPCS: 90471; 90656 ==